=== PATIENT | female | born 1930 | race Caucasian/White ===

== ENCOUNTER → 2016-07-13 | Outpatient (CLI) | payer BC ==
[~2016-07-13] MED LIST: ALPR-411 PO; DILT-117 PO; DORZ1SOL6 OP; FERR1TAB13 PO; LATA0.5S OP; LEVO88TA PO; PANT40TA PO; POLY335019 PO; SENN1TAB65 PO; SPIR50TA PO
[2016-07-16 00:42] LABS: O&P GIARDIA AG NOT DETECTED (NOT DETECTED)
== END | disposition home or self-care (01) ==
LOC: C.LABSPEC 11:56
PROVIDERS: ATTEND Internal Medicine
DX: D72.1 Eosinophilia (principal)

== ENCOUNTER → 2016-07-15 | Outpatient (CLI) | payer BC ==
--- NOTE | 2016-07-15 08:40 | DIAGNOSTIC IMAGING REPORT ---
ABDOMINAL ULTRASOUND, RIGHT UPPER QUADRANT HISTORY: D72.1 Peripheral eosinophilia. COMPARISON: Abdominal ultrasound 06/15/2011. FINDINGS: Pancreas: The pancreas demonstrates a normal echotexture. Liver: The liver is echogenic consistent with fatty change. There is a 4.7 x 4.1 x 3.6 cm lesion within the right hepatic lobe. This demonstrates a targetoid appearance. This appears to be new from the prior study. Gallbladder: There are few stones within the gallbladder with the largest measuring 2.4 cm. Borderline gallbladder wall thickening. No pericholecystic fluid. CBD: 7 mm. This is within the range of normal limits given the patient's age. Right kidney: No hydronephrosis. A few subcentimeter cysts. IMPRESSION: 1. Interval development of a 4.7 cm targetoid lesion within the right hepatic lobe. Recommend dedicated liver MRI or CT for further characterization. 2. Cholelithiasis. There is borderline gallbladder wall thickening. No pericholecystic fluid. Electronically signed by: Silas Mendez M.D. 07/15/2016 8:38 AM
== END | disposition home or self-care (01) ==
LOC: C.ULTR 07:56
PROVIDERS: ATTEND Internal Medicine
DX: D72.1 Eosinophilia (principal); K76.9 Liver disease, unspecified; K80.20 Calculus of gallbladder without cholecystitis without obstruction

== ENCOUNTER → 2016-08-12 | Outpatient (CLI) | payer BC ==
--- NOTE | 2016-08-12 16:55 | DIAGNOSTIC IMAGING REPORT ---
CHEST 2 VIEWS ROUTINE CLINICAL HISTORY: D72.1 Peripheral eosinophilia COMPARISON STUDY: No previous studies for comparison. FINDINGS: There is a thoracic scoliosis. The heart is at the upper limits of normal in size. There is no failure. There is no focal pulmonary consolidation. There are no pleural effusions.[ IMPRESSION: No active disease in the chest. Electronically signed by: Ian Ross M.D. 08/12/2016 4:54 PM Dictated Date/Time: 08/12/2016 4:51 PM
[2016-08-16 15:50] LABS: AFP TUMOR MARKER SERUM 55.3 NG/ML (<6.1)
== END | disposition home or self-care (01) ==
LOC: C.RAD1850 16:31
PROVIDERS: ATTEND Internal Medicine
DX: D72.1 Eosinophilia (principal); R16.0 Hepatomegaly, not elsewhere classified

== ENCOUNTER → 2016-08-18 | Outpatient (CLI) | payer BC ==
--- NOTE | 2016-08-18 10:36 | DIAGNOSTIC IMAGING REPORT ---
PET/CT CLINICAL HISTORY: Hepatic mass. COMPARISON STUDY: MRI of the liver dated 07/23/2016. Abdominal ultrasound dated 07/15/2016. TECHNIQUE: One hour following the IV administration of 14.76 mCi of F-18 FDG, PET/CT examination was performed from the orbital meatal line through the bony pelvis. Noncontrast CT is performed for the purposes of anatomic correlation and attenuation correction. Note that this does not reflect a diagnostic CT examination. Images were reviewed on a separate [employer] independent workstation. Fused images were obtained. Standard uptake values reported are maximum values within the region of interest expressed in gm/mL. FINDINGS: PET FINDINGS: Head and neck: There is expected physiologic activity within the visualized brain parenchyma at the skull base and the salivary glands. Low level pharyngeal activity is likely within physiologic limits. Thorax: Evaluation of the thorax demonstrates expected physiologic myocardial activity. No pathologically enlarged mediastinal lymph nodes are identified. There is a high right peritracheal lymph node seen on image #63. This was not demonstrably FDG patent avid but is too small for PET characterization. Abdomen and pelvis: There is expected activity within the liver, spleen, kidneys, renal collecting system, and bladder. Low-level bowel activity is likely within physical limits. There is a subtle 3.4 cm low-attenuation lesion identified in the medial right lobe of the liver. This is best seen on image #123. This is not well assessed by PET, and there may be slightly increased FDG activity along the superior margin of the lesion suggested on image #118. This demonstrates a maximum SUV of 3.3 which is only slightly greater than background hepatic parenchyma. Unenhanced CT images: Visualized brain parenchyma at the skull base demonstrates age-related atrophy. The bony orbits are intact and the orbital contents are normal as imaged noting bilateral ocular lens implants. The paranasal sinuses and mastoid air cells are clear. There is no cervical lymphadenopathy. Atherosclerotic calcification is noted in the carotid bulbs. The salivary and thyroid glands are normal as imaged. There is atherosclerotic calcification of the thoracic aorta which is normal in caliber. The pulmonary trunk is dilated measuring up to 3.6 cm. This suggests pulmonary artery hypertension. The heart is top normal in size and there is trace pericardial fluid. The lungs and pleural spaces are clear. No concerning pulmonary lesion is seen. The trachea and central airways are patent. There is no hilar or axillary lymphadenopathy. A small hiatal hernia is identified. Enhanced liver is normal in size and attenuation. See above under PET findings for discussion of a liver lesion. A large calcified gallstone is noted. The pancreas demonstrate moderate glandular atrophy. The adrenal glands and spleen are normal as imaged. The kidneys are atrophic and without hydronephrosis. There is advanced atherosclerotic calcification of the abdominal aorta which is normal in caliber. There is no bowel obstruction. A normal appendix is identified. There is moderate sigmoid diverticulosis without CT evidence of acute diverticulitis. A fat-containing supraumbilical hernia is noted. There is no intraperitoneal free air or abdominal ascites. There is a small fat-containing left inguinal hernia. There is no abdominal, pelvic, or inguinal lymphadenopathy. The bladder is decompressed and not well evaluated. The uterus is surgically absent. No adnexal lesion is seen. Pelvic floor prolapse is suspected. The skeletal structures are osteopenic. No lytic or blastic lesions are identified. 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 Degenerative change is observed throughout the spine. There is thoracic scoliosis. IMPRESSION: 1. There is a subtle lesion in the right lobe of the liver which measures at least 3.4 cm in length. The majority of the lesion is not demonstrably FDG avid, with only mildly increased FDG activity suggested involving the superior margin of the lesion that is only slightly greater than background hepatic activity. This lesion was much better characterized on 07/23/2016 MRI, and the MRI findings remain highly concerning for hepatocellular carcinoma. Top differential considerations would include a solitary hepatic metastasis or hepatic adenoma. Correlation with serum AFP levels is recommended. 2. There is no evidence of FDG avid metastatic disease in the abdomen or pelvis. 3. The lungs are clear. 4. Cholelithiasis. 5. Moderate sigmoid diverticulosis without CT evidence of acute epiglottis. 6. Additional changes as above. Electronically signed by: Bora Amaral M.D. 08/18/2016 10:35 AM Dictated Date/Time: 08/18/2016 10:18 AM
== END | disposition home or self-care (01) ==
LOC: C.PET 07:45
PROVIDERS: ATTEND Internal Medicine
DX: C80.1 Malignant (primary) neoplasm, unspecified (principal); K76.9 Liver disease, unspecified; K80.20 Calculus of gallbladder without cholecystitis without obstruction; K57.30 Diverticulosis of large intestine without perforation or abscess without bleeding

== ENCOUNTER 2016-08-27 22:03 | Inpatient (IN) | payer BC, OTHER ==
[~2016-08-27] VITALS: Ht 160 cm; Wt 70.2 kg
[2016-08-27] MEDS ORDERED: PANTOprazole INJ 80 MG in DEXTROSE 5% 100ML 100 ML IV STA (22:20)
[2016-08-27] MEDS ORDERED: ONDANSETRON INJ 2 MG/ML 2 ML VIAL IV STA ×2 (22:20→23:14)
[2016-08-27 22:45] LABS: BASO % 0.9 %; COMPLETE YES; EOS % 4.1 %; HEMATOCRIT 37.6 % (37-47); IG% 0.1 %; LYMPH % 22.2 %; LYMPH ABS # 2.54 K/uL (1.2-3.4); MEAN CELL VOLUME 96.2 fL (80-100); MEAN CORPUSCULAR HEMOGLOBIN 33.5 pg (25-34); MEAN CORPUSCULAR HGB CONC 34.8 g/dl (32-36); MONO % 5.4 %; NEUT % 67.3 %; PLATELET COUNT 288 K/uL (130-400); RED BLOOD COUNT 3.91 M/uL (4.2-5.4); WHITE BLOOD COUNT 11.45 K/uL (4.8-10.8)
[2016-08-27 22:55] LABS: INR 1.2 (0.9-1.1); PROTHROMBIN TIME (PATIENT) 12.6 SECONDS (9.0-12.0)
[2016-08-27] MEDS ORDERED: LEVO88TA PO (23:01)
[2016-08-27] MEDS ORDERED: SPIR50TA PO (23:01)
[2016-08-27] MEDS ORDERED: ALPR-411 PO (23:01)
[2016-08-27] MEDS ORDERED: DORZ1SOL6 OP (23:01)
[2016-08-27] MEDS ORDERED: DILT-117 PO (23:01)
[2016-08-27] MEDS ORDERED: LATA0.5S OP (23:01)
[2016-08-27 23:04] LABS: ALT/SGPT 36 U/L (12-78); AST/SGOT 28 U/L (15-37); BLOOD UREA NITROGEN 43 mg/dl (7-18); BUN/CREATININE RATIO 38.7 (10-20); CALCIUM 9.1 mg/dl (8.5-10.1); CARBON DIOXIDE 24 mmol/L (21-32); CHLORIDE 105 mmol/L (98-107); GLUCOSE 131 mg/dl (70-99); POTASSIUM 3.6 mmol/L (3.5-5.1); SODIUM 143 mmol/L (136-145)
[2016-08-27 23:09] LABS: ALKALINE PHOSPHATASE 55 U/L (45-117)
[2016-08-27] MEDS ORDERED: OCTREOTIDE IV BOLUS & DRIP IV STA ×2 (23:28→23:47)
[2016-08-27 23:42] LABS: URINE APPEARANCE CLEAR (CLEAR); URINE BILIRUBIN NEG (NEG); URINE COLOR YELLOW; URINE EPITHELIAL CELL AUTO >30 /lpf (0-5); URINE NITRITE NEG (NEG); URINE SPECIFIC GRAVITY 1.019 (1.000-1.030); UROBILINOGEN NEG (NEG); ZZUR CULT IF INDIC CLEAN CATCH NO
[2016-08-28] MEDS ORDERED: MoRPHine SULFATE 2 MG/ML CARP IV PRN
[2016-08-28] MEDS ORDERED: ONDANSETRON INJ 2 MG/ML 2 ML VIAL IV PRN
[2016-08-28] MEDS ORDERED: OCTREOTIDE ACETATE INJ 100 MCG in SYRINGE 9 ML IV STA (00:03)
[2016-08-28 00:04] LABS: MANUAL MICROSCOPIC REQUIRED? NO; REVIEW REQ? NO
[2016-08-28] MEDS: PANTOprazole INJ 40 MG in DEXTROSE 5% 100ML IV SCH ×6 (00:31→23:39)
--- NOTE | 2016-08-28 00:36 | History and Physical ---
History & Physical Date & Time of Service: Aug 28, 2016 at 00:12 Chief Complaint: Vomit--Blood Clots Primary Care Physician: Sanjeev Wilkerson M.D. History of Present Illness Source: patient, family 86 y/o F w/Hx HTN, hypothyroidism and recently discovered solitary, vascular liver mass. The pt became nauseous this evening and then had an episode of hematemesis vomiting several blood clots and a mixture of dark and bright blood. He daughter was visiting her this evening and snapped confirmatory photos of the vomitus to present to the ER. The pt has not had an additional episode while in the ER. She denies abdominal pain or diarrhea and denies nausea at the time of admission. She has no history of PUD, hematemesis or varices. Her mass is currently under evaluation and she has not had a biopsy as of yet. She states her AFP levels have been WNL. The pt may have a glass of wine daily but does not drink in excess, she denies chronic NSAID use. Past Medical/Surgical History Medical Problems: (1) Cholelithiasis Status: Resolved 2) HTN 3) Hypothyroidism 4) Vascular liver mass in R hepatic lobe under evaluation Family History Father had colon CA Social History Smoking Status: Former Smoker Multi-Drug Resistant Organisms History of MDRO: No Allergies Coded Allergies: Iodinated Diagnostic Agents (Unverified Allergy, Unknown, SWELLING, ) CONTRAST Home Medications Scheduled Diltiazem Hcl Ext Rel (Tiazac), 300 MG PO DAILY Dorzolamide Hcl-Timolol Maleat (Cosopt Oph), 1 DROPS OP BID Hctz/Spironolactone 25MG/25MG (Aldactazide 25MG/25MG), 1 TAB PO BID Latanoprost (Xalatan 0.005% Oph Mayuri), 1 DROPS OP HS Levothyroxine Sodium (Synthroid), 88 MCG PO QAM Scheduled PRN Alprazolam (Xanax), 0.25 MG PO HS PRN for Insomnia Review of Systems Constitutional: No chills, No fever, No sweats Eyes: No worsening of vision ENT: No hearing loss, No nasal symptoms, No unusual epistaxis Respiratory: No cough, No sputum, No wheezing Cardiovascular: No PND, No chest pain, No orthopnea Abdomen: + GI bleeding, + nausea, + vomiting, No pain Musculoskeletal: No joint pain, No muscle pain Genitourinary - Female: No dysuria, No urinary frequency, No urinary urgency Neurologic: No memory loss, No paralysis Psychiatric: No depression symptoms Endocrine: No fatigue Hematologic / Lymphatic: + abnormal bleeding/bruising Integumentary: No rash Allergic / Immunologic: No environmental allergies Physical Exam Vital Signs Date Time Temp Pulse Resp B/P Pulse Ox O2 Delivery O2 Flow Rate FiO2 08/27/16 23:01 92 08/27/16 22:10 36.8 96 20 162/73 96 Room Air General Appearance: WD/WN, no apparent distress, + pertinent finding (Plesent elderly female resting comfortably and enjoying a book) Head: normocephalic, atraumatic Eyes: normal inspection ENT: normal ENT inspection, hearing grossly normal, TMs normal, pharynx normal Neck: supple, no JVD Respiratory/Chest: chest non-tender, lungs clear, no accessory muscle use Cardiovascular: regular rate, rhythm, no edema, no gallop, normal peripheral pulses Abdomen/GI: normal bowel sounds, non tender, soft, + pertinent finding ( Hematemesis confirmed with a photo) Back: normal inspection, no CVA tenderness, no muscle spasm, normal range of motion Extremities/Musculoskelatal: normal inspection, no calf tenderness, normal capillary refill, no pedal edema, normal range of motion Neurologic/Psych: seismograph recorder II-XII nml as tested, no motor/sensory deficits, alert, normal mood/affect, normal reflexes, oriented x 3 Skin: normal color, warm/dry, no rash Diagnostics Laboratory Results Results Past 24 Hours Test 08/27/16 22:30 08/27/16 23:29 Range/Units White Blood Count 11.45 4.8-10.8 K/uL Red Blood Count 3.91 4.2-5.4 M/uL Hemoglobin 13.1 12.0-16.0 g/dL Hematocrit 37.6 37-47 % Mean Corpuscular Volume 96.2 80-100 fL Mean Corpuscular Hemoglobin 33.5 25-34 pg Mean Corpuscular Hemoglobin Concent 34.8 32-36 g/dl Platelet Count 288 130-400 K/uL Mean Platelet Volume 10.0 7.4-10.4 fL Neutrophils (%) (Auto) 67.3 % Lymphocytes (%) (Auto) 22.2 % Monocytes (%) (Auto) 5.4 % Eosinophils (%) (Auto) 4.1 % Basophils (%) (Auto) 0.9 % Neutrophils # (Auto) 7.71 1.4-6.5 K/uL Lymphocytes # (Auto) 2.54 1.2-3.4 K/uL Monocytes # (Auto) 0.62 0.11-0.59 K/uL Eosinophils # (Auto) 0.47 0-0.5 K/uL Basophils # (Auto) 0.10 0-0.2 K/uL RDW Standard Deviation 48.1 36.4-46.3 fL RDW Coefficient of Variation 13.7 11.5-14.5 % Immature Granulocyte % (Auto) 0.1 % Immature Granulocyte # (Auto) 0.01 0.00-0.02 K/uL Prothrombin Time 12.6 9.0-12.0 SECONDS Prothromb Time International Ratio 1.2 0.9-1.1 Activated Partial Thromboplast Time 24.8 21.0-31.0 SECONDS Partial Thromboplastin Ratio 1.0 Sodium Level 143 136-145 mmol/L Potassium Level 3.6 3.5-5.1 mmol/L Chloride Level 105 98-107 mmol/L Carbon Dioxide Level 24 21-32 mmol/L Anion Gap 14.0 3-11 mmol/L Blood Urea Nitrogen 43 7-18 mg/dl Creatinine 1.10 0.60-1.20 mg/dl Est Creatinine Clear Calc Drug Dose 36.2 ml/min Estimated GFR () 53.4 Estimated GFR (Non- 46.1 BUN/Creatinine Ratio 38.7 10-20 Random Glucose 131 70-99 mg/dl Calcium Level 9.1 8.5-10.1 mg/dl Total Bilirubin 0.8 0.2-1 mg/dl Direct Bilirubin 0.2 0-0.2 mg/dl Aspartate Amino Transf (AST/SGOT) 28 15-37 U/L Alanine Aminotransferase (ALT/SGPT) 36 12-78 U/L Alkaline Phosphatase 55 45-117 U/L Troponin I < 0.015 0-0.045 ng/ml Total Protein 7.5 6.4-8.2 gm/dl Albumin 3.8 3.4-5.0 gm/dl Lipase 176 73-393 U/L Urine Color YELLOW Urine Appearance CLEAR CLEAR Urine pH 5.0 4.5-7.5 Urine Specific [place] 1.019 1.000-1.030 Urine Protein NEG NEG Urine Glucose (UA) NEG NEG Urine Ketones 1+ NEG Urine Occult Blood NEG NEG Urine Nitrite NEG NEG Urine Bilirubin NEG NEG Urine Urobilinogen NEG NEG Urine Leukocyte Esterase SMALL NEG Urine WBC (Auto) 1-5 0-5 /hpf Urine RBC (Auto) 0-4 0-4 /hpf Urine Hyaline Casts (Auto) 0 0-5 /lpf Urine Epithelial Cells (Auto) >30 0-5 /lpf Urine Bacteria (Auto) NEG NEG Impression Assessment and Plan 86 y/o F w/Hx HTN, hypothyroidism and recently discovered solitary, vascular liver mass. The pt became nauseous this evening and then had an episode of hematemesis vomiting several blood clots and a mixture of dark and bright blood. He daughter was visiting her this evening and snapped confirmatory photos of the vomitus to present to the ER. The pt has not had an additional episode while in the ER. She denies abdominal pain or diarrhea and denies nausea at the time of admission. She has no history of PUD, hematemesis or varices. Her mass is currently under evaluation and she has not had a biopsy as of yet. She states her AFP levels have been WNL. 1) Hematemesis: Pt placed on a Pantoprazole drip in addition to Octreotide pending evaluation by GI. She will be monitored on telemetry, we will provide IVF and antiemetics as needed and keep pt NPO for likely EGD. Her liver mass appears to be a solitary lesion and there is no evidence of cirrhosis so that this is less likely to be the result of varices however we would not be able to rule this out at present. Hb will be checked Q4H. A blood consent was placed in the chart on admission. 2) HTN - We have held her diuretics and Diltiazem as she is at risk of decompensation. Considering the above we may administer a low dose of IV B may if it becomes necessary to lower her BP. 3) Hypothyroidism - IV Synthroid at 44mcg daily 4) Liver mass - pending further outpt evaluation Full code - SCDs Total time for this admit including review of records, labs, meds - discussion with ER attending and pt/daughter 35 min Resuscitation Status FULL RESUSCITATION VTE Prophylaxis VTE Risk Assessment Done? Y/N: Yes Risk Level: Moderate Given or contraindicated: SCD's
[2016-08-28] MEDS ORDERED: LORAZEPAM 2 MG/ML 1 ML VIAL IV STA (00:48)
[2016-08-28] MEDS: OCTREOTIDE ACETATE INJ 500 MCG in NSS 100ML IV SCH ×2 (02:40→11:22)
--- NOTE | 2016-08-28 02:43 | EMERGENCY ROOM VISIT NOTE ---
History Report prepared by Tato: Ayala Driscoll Under the Supervision of: Dr. Andi Ruano M.D. 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 The patient states that she is being evaluated for potential liver cancer and has had an MRI and PET scan, she reports they have concluded that it is about the size of a dime and is not coming from anywhere else in her body. She reports that today she felt nauseous all day and had one episode of vomiting with multiple waves of vomit that had blood and dark clots in it. The patient's daughter took a picture of the vomit. The patient notes that this has never happened to her before. She denies any black or bloody stools, cirrhosis of the liver, abdominal pain, history of ulcers, or continued use of NSAIDS. She reports that she is not on blood thinners and does not have varices that she knows of. The patient reports that she is not a heavy drinker but has one glass of wine every night before dinner. She notes that she has never had an endoscope and has an incisional hernia from a surgery 30 years ago. She reports that she takes Aspirin occasionally but not regularly. 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 Review of Systems See HPI for pertinent positives & negatives. A total of 10 systems reviewed and were otherwise negative. Past Medical & Surgical Medical Problems: (1) Cholelithiasis (2) Hematemesis (3) Hepatocellular carcinoma Family History No pertinent family history stated. Social History Smoking Status: Former Smoker Alcohol Use: other (1 drink a day) Housing Status: skilled nursing Occupation Status: retired Current/Historical Medications Scheduled Diltiazem Hcl Ext Rel (Tiazac), 300 MG PO DAILY Dorzolamide Hcl-Timolol Maleat (Cosopt Oph), 1 DROPS OP BID Hctz/Spironolactone 25MG/25MG (Aldactazide 25MG/25MG), 1 TAB PO BID Latanoprost (Xalatan 0.005% Oph Mayuri), 1 DROPS OP HS Levothyroxine Sodium (Synthroid), 88 MCG PO QAM Scheduled PRN Alprazolam (Xanax), 0.25 MG PO HS PRN for Insomnia Allergies Coded Allergies: Iodinated Diagnostic Agents (Unverified Allergy, Unknown, SWELLING, ) CONTRAST Physical Exam Vital Signs Date Time Temp Pulse Resp B/P Pulse Ox O2 Delivery O2 Flow Rate FiO2 08/28/16 02:00 84 20 139/71 94 Room Air 08/28/16 00:36 95 19 143/73 98 Room Air 08/27/16 23:01 92 08/27/16 22:10 36.8 96 20 162/73 96 Room Air Physical Exam Constitutional: Vital signs reviewed. Eyes: Pupils are equal round reactive to light. Conjunctiva are noninjected. ENT: Pharynx is clear without erythema or exudate. Mucous membranes are moist. Neck supple without meningeal signs. Respiratory: Clear to auscultation bilaterally. Breath sounds are equal bilaterally. Cardiovascular: Tachycardic rate of 103 and rhythm. No rubs or gallops. GI: Soft, nondistended and nontender. Bowel sounds are present. Musculoskeletal: No peripheral edema. No lower extremity tenderness. Integumentary: No cyanosis. Neurological: The patient is awake and alert. No focal deficits. Psychiatric: Normal affect. Rectal: Guaiac negative. Brown stool. Medical Decision & Procedures ER Provider Diagnostic Interpretation: X-ray results as stated below per interpretation by me: Chest/Abdomen X-ray: No acute cardiopulmonary process, no free air or obstruction. Laboratory Results 08/27/16 22:30 Red Blood Count 3.91, Mean Corpuscular Volume 96.2, Mean Corpuscular Hemoglobin 33.5, Mean Corpuscular Hemoglobin Concent 34.8, Mean Platelet Volume 10.0, Neutrophils (%) (Auto) 67.3, Lymphocytes (%) (Auto) 22.2, Monocytes (%) (Auto) 5.4, Eosinophils (%) (Auto) 4.1, Basophils (%) (Auto) 0.9, Neutrophils # (Auto) 7.71, Lymphocytes # (Auto) 2.54, Monocytes # (Auto) 0.62, Eosinophils # (Auto) 0.47, Basophils # (Auto) 0.10 08/27/16 22:30 Test 08/27/16 22:30 08/27/16 23:29 White Blood Count 11.45 K/uL (4.8-10.8) Red Blood Count 3.91 M/uL (4.2-5.4) Hemoglobin 13.1 g/dL (12.0-16.0) Hematocrit 37.6 % (37-47) Mean Corpuscular Volume 96.2 fL (80-100) Mean Corpuscular Hemoglobin 33.5 pg (25-34) Mean Corpuscular Hemoglobin Concent 34.8 g/dl (32-36) Platelet Count 288 K/uL (130-400) Mean Platelet Volume 10.0 fL (7.4-10.4) Neutrophils (%) (Auto) 67.3 % Lymphocytes (%) (Auto) 22.2 % Monocytes (%) (Auto) 5.4 % Eosinophils (%) (Auto) 4.1 % Basophils (%) (Auto) 0.9 % Neutrophils # (Auto) 7.71 K/uL (1.4-6.5) Lymphocytes # (Auto) 2.54 K/uL (1.2-3.4) Monocytes # (Auto) 0.62 K/uL (0.11-0.59) Eosinophils # (Auto) 0.47 K/uL (0-0.5) Basophils # (Auto) 0.10 K/uL (0-0.2) RDW Standard Deviation 48.1 fL (36.4-46.3) RDW Coefficient of Variation 13.7 % (11.5-14.5) Immature Granulocyte % (Auto) 0.1 % Immature Granulocyte # (Auto) 0.01 K/uL (0.00-0.02) Prothrombin Time 12.6 SECONDS (9.0-12.0) Prothromb Time International Ratio 1.2 (0.9-1.1) Activated Partial Thromboplast Time 24.8 SECONDS (21.0-31.0) Partial Thromboplastin Ratio 1.0 Anion Gap 14.0 mmol/L (3-11) Est Creatinine Clear Calc Drug Dose 36.2 ml/min Estimated GFR () 53.4 Estimated GFR (Non- 46.1 BUN/Creatinine Ratio 38.7 (10-20) Calcium Level 9.1 mg/dl (8.5-10.1) Total Bilirubin 0.8 mg/dl (0.2-1) Direct Bilirubin 0.2 mg/dl (0-0.2) Aspartate Amino Transf (AST/SGOT) 28 U/L (15-37) Alanine Aminotransferase (ALT/SGPT) 36 U/L (12-78) Alkaline Phosphatase 55 U/L (45-117) Troponin I < 0.015 ng/ml (0-0.045) Total Protein 7.5 gm/dl (6.4-8.2) Albumin 3.8 gm/dl (3.4-5.0) Lipase 176 U/L (73-393) Urine Color YELLOW Urine Appearance CLEAR (CLEAR) Urine pH 5.0 (4.5-7.5) Urine Specific [place] 1.019 (1.000-1.030) Urine Protein NEG (NEG) Urine Glucose (UA) NEG (NEG) Urine Ketones 1+ (NEG) Urine Occult Blood NEG (NEG) Urine Nitrite NEG (NEG) Urine Bilirubin NEG (NEG) Urine Urobilinogen NEG (NEG) Urine Leukocyte Esterase SMALL (NEG) Urine WBC (Auto) 1-5 /hpf (0-5) Urine RBC (Auto) 0-4 /hpf (0-4) Urine Hyaline Casts (Auto) 0 /lpf (0-5) Urine Epithelial Cells (Auto) >30 /lpf (0-5) Urine Bacteria (Auto) NEG (NEG) Laboratory results as reviewed by me. Medications Administered Medications (Trade) Dose Ordered Sig/Seth Route Start Time Stop Time Status Last Admin Dose Admin Ondansetron HCl 4 mg 4 mg NOW STAT IV 08/27/16 22:20 08/27/16 22:22 DC 08/27/16 22:46 4 MG Pantoprazole Sodium/Dextrose (Protonix Inj/D5 100ml) 120 ml @ 400 mls/hr NOW STAT IV 08/27/16 22:20 08/27/16 22:37 DC 08/27/16 22:46 400 MLS/HR Ondansetron HCl 4 mg 4 mg NOW STAT IV 08/27/16 23:14 08/27/16 23:15 DC 08/27/16 23:25 4 MG Octreotide Acetate 100 mcg/ Syringe 10 ml @ 3 mls/min ONE STAT IV 08/28/16 00:03 08/28/16 00:06 DC 08/28/16 01:59 3 MLS/MIN Pantoprazole Sodium/Dextrose (Protonix Inj/D5 100ml) 100 ml @ 20 mls/hr Q5H IV 08/28/16 00:15 09/27/16 00:14 08/28/16 00:31 20 MLS/HR Lorazepam (Ativan Inj) 0.25 mg NOW STAT IV 08/28/16 00:48 08/28/16 00:54 DC 08/28/16 02:09 0.25 MG ED Course 2210: The patient was evaluated in room A2. A complete history and physical exam was performed. 2220: Pantoprazole Sodium 80mg/Dextrose 120ml @ 400mls/hr IV, Zofran Inj 4mg IV. 2314: Zofran Inj 4mg IV. 2317: I reevaluated the patient. She is still nauseated and she is hypertensive. She is not tachycardic. 2320: I spoke to Dr. Larose about the patient's case. He wants me to talk to GI. 2328: Octreotide Acetate 1 ea IV. 2328: I spoke to Dr. Salguero. She suggested no emergent scope and to start the Octreotide drip. 2331: I spoke with Dr. Larose of [facility]. We discussed the patient and her results. The patient will be further evaluated by Dr. Larose. Medical Decision This is an 86-year-old female presents with hematemesis. Differential diagnosis includes GI bleed, peptic ulcer disease, gastritis, esophageal varices , anemia. I did perform a limited focused review of portions of the patient's old chart on the electronic medical record. The patient has had had an MRI of the liver in July which was concerning for hepatocellular carcinoma. I did evaluate the patient as noted above. I did review the pictures of the vomitus that her daughter brought in. She did have bright red blood as well as clots in the vomit. Her stool is brown and guaiac negative. IV access was established. The patient was placed on a continuous cardiac technician. I did order and personally review the patient's abdominal and chest x-ray as described above. There is no evidence of free air or obstruction. I did order and review the patient's blood work as noted in the electronic medical record. She is not anemic. I did reassess the patient. She remains hemodynamically stable. Her tachycardia has improved. She was given Protonix IV. An octreotide drip was started. A type and screen was obtained. I did discuss the case with gastroenterology he did not feel emergent endoscopy was indicated. I did discuss case with the hospitalist who admitted the patient. Consults Time Called: 2314 Consulting Physician: Dr. Larose - [facility] Returned Call: [address] Larose about the patient's case. He wants me to talk to GI. Additional Consults: Time Called: 2321 Consulted Physician: Dr. Salguero Returned Call: 2325 Additional Comments: I spoke to Dr. Salguero. She suggested no emergent scope and to start the Octreotide drip. Time Called: 232 Consulted Physician: Dr. Salguero Returned Call: 2331 Additional Comments: I spoke with Dr. Larose of [facility]. We discussed the patient and her results. The patient will be further evaluated by Dr. Larose. Impression Primary Impression: Upper GI bleed Scribe Attestation The scribe's documentation has been prepared under my direct and personally reviewed by me in its entirety. I confirm that the note above accurately reflects all work, treatment, procedures, and medical decision making performed by me. Departure Information Dispostion Being Evaluated By Hospitalist Referrals Sanjeev Wilkerson M.D. (PCP) Patient Instructions My [facility]
[2016-08-28 03:01] VITALS: BP 128/74; PULSE 90; TEMP 36.8; O2SAT 94; Ht 160 cm; Wt 70.2 kg
[2016-08-28] MEDS: D5NSS + 20MEQ KCL 1,000 ML IV SCH ×2 (03:24→12:54)
[2016-08-28 05:55] VITALS: BP 112/66; PULSE 77; TEMP 37; O2SAT 95
--- NOTE | 2016-08-28 06:34 | DIAGNOSTIC IMAGING REPORT ---
PA CHEST RADIOGRAPH AND UPRIGHT AND SUPINE AP RADIOGRAPHS OF THE ABDOMEN CLINICAL HISTORY: GI bleed. COMPARISON STUDY: PET/CT August 18, 2016 and chest radiograph August 12, 2016. FINDINGS: Lung volumes are normal. Cardiomediastinal silhouette is stable. There is no evidence of pulmonary edema. Mild left basilar opacity suggestive atelectasis. No consolidation is identified. There is no free air. Bowel gas pattern is normal. A gallstone is noted within the gallbladder. There is a moderate amount of stool within the colon and rectum. IMPRESSION: 1. No free air or evidence of bowel obstruction. 2. Moderate amount stool within the colon and rectum. 3. Cholelithiasis. 4. No acute cardiopulmonary findings. Electronically signed by: Florin Rai M.D. 08/28/2016 6:33 AM Dictated Date/Time: 08/28/2016 6:30 AM
[2016-08-28 07:53] VITALS: BP 112/66; PULSE 77; TEMP 37; O2SAT 95
--- NOTE | 2016-08-28 08:09 | Gastrointestinal Consultation ---
Gastrointestinal Consultation Date of Consultation: Aug 28, 2016 Attending Physician: Dr. Bobo Consulting Physician: Dr. Salguero Reason for Consultation: hematemesis History of Present Illness Patient is a 86 year old female wtih HTN, hypothyroidism, and recent incidental finding of a lesion in her liver (discovered on imaging done for epigastric and RUQ pain). Work-up of the liver lesion is in process. She is not cirrhotic. AFP is normal. Has no history of liver disease. Imaging is inconclusive - HCC vs hepatic adenoma. She presented to the ER last night after several episodes of emesis with some bright red blood and clots. She tells me that she had some nausea all day yesterday. She was able to eat lunch but later told her daughter she just didn't feel well and was going to go lay down. She got a wave of nausea and some upper abdominal pressure while in bed and sat up and vomited several times. When she turned on the lights she noted that the emesis was bloody with some clots. EMS was called and she was brought to the ER. Her hgb is 13.1 and INR is 1.2, She is not on ASA, PLavix or coumadin but does admit that in the last week she had been taking Aleve. No prior history of GI bleed, ulcer disease, etc. In the ER she was started on PPI gtt as well as octreotide. She has not had any further vomiting and has not had any BM since yesterday. Past Medical/Surgical History Medical Problems: (1) Upper GI bleed Status: Acute Past Medical History: HTN, hypothyroidism, liver lesion Past Surgical History: non-contributory Family History no family history of liver disease, + family history of colon cancer Social History Smoking Status: Never Smoker Alcohol Use: occasionally, other (1 drink a day) Drug Use: none Marital Status: Housing Status: [facility]iary Occupation Status: retired Allergies Coded Allergies: Iodinated Diagnostic Agents (Unverified Allergy, Unknown, SWELLING, ) CONTRAST Current Medications Home Meds and Scripts Medications Dose Route/Sig Max Daily Dose Days Date Category Xalatan 0.005% Oph Mayuri (Latanoprost) 0.005 % Mayuri 1 Drops OP HS 08/27/16 Reported Cosopt Oph (Dorzolamide Hcl-Timolol Maleat) 1 Mayuri Mayuri 1 Drops OP BID 08/27/16 Reported Xanax (Alprazolam) 0.5 Mg Tab 0.25 Mg PO HS PRN 08/27/16 Reported Aldactazide 25MG/25MG (HCTZ/Spironolactone) 1 Tab Tab 1 Tab PO BID 08/27/16 Reported Tiazac (Diltiazem HCl) 300 Mg Capcr 300 Mg PO DAILY 08/27/16 Reported Synthroid (Levothyroxine Sodium) 88 Mcg Tab 88 Mcg PO QAM 08/27/16 Reported Review of Systems 12 systems reviewed and negative except as noted Physical Exam Date Time Temp Pulse Resp B/P Pulse Ox O2 Delivery O2 Flow Rate FiO2 08/28/16 04:00 Room Air 08/28/16 03:01 36.8 90 20 128/74 94 Room Air 08/28/16 02:00 84 20 139/71 94 Room Air 08/28/16 00:36 95 19 143/73 98 Room Air 08/27/16 23:01 92 08/27/16 22:10 36.8 96 20 162/73 96 Room Air General Appearance: WD/WN, no apparent distress Eyes: normal inspection, PERRL ENT: normal ENT inspection, hearing grossly normal, pharynx normal Neck: supple, no adenopathy, no JVD Respiratory/Chest: chest non-tender, lungs clear, normal breath sounds, no respiratory distress, no accessory muscle use Cardiovascular: regular rate, rhythm, no murmur Abdomen: normal bowel sounds, non tender, soft Extremities: normal range of motion, non-tender, normal inspection, no pedal edema, no calf tenderness 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 nml as tested, no motor/sensory deficits, alert, normal mood/affect, oriented x 3 Skin: normal color, no jaundice, warm/dry, no rash Laboratory Results Last 24 Hours Test 08/27/16 22:30 08/27/16 23:29 08/28/16 07:30 White Blood Count 11.45 K/uL Red Blood Count 3.91 M/uL Hemoglobin 13.1 g/dL Hematocrit 37.6 % Mean Corpuscular Volume 96.2 fL Mean Corpuscular Hemoglobin 33.5 pg Mean Corpuscular Hemoglobin Concent 34.8 g/dl Platelet Count 288 K/uL Mean Platelet Volume 10.0 fL Neutrophils (%) (Auto) 67.3 % Lymphocytes (%) (Auto) 22.2 % Monocytes (%) (Auto) 5.4 % Eosinophils (%) (Auto) 4.1 % Basophils (%) (Auto) 0.9 % Neutrophils # (Auto) 7.71 K/uL Lymphocytes # (Auto) 2.54 K/uL Monocytes # (Auto) 0.62 K/uL Eosinophils # (Auto) 0.47 K/uL Basophils # (Auto) 0.10 K/uL RDW Standard Deviation 48.1 fL RDW Coefficient of Variation 13.7 % Immature Granulocyte % (Auto) 0.1 % Immature Granulocyte # (Auto) 0.01 K/uL Prothrombin Time 12.6 SECONDS Prothromb Time International Ratio 1.2 Activated Partial Thromboplast Time 24.8 SECONDS Partial Thromboplastin Ratio 1.0 Sodium Level 143 mmol/L Potassium Level 3.6 mmol/L Chloride Level 105 mmol/L Carbon Dioxide Level 24 mmol/L Anion Gap 14.0 mmol/L Blood Urea Nitrogen 43 mg/dl Creatinine 1.10 mg/dl Est Creatinine Clear Calc Drug Dose 36.2 ml/min Estimated GFR () 53.4 Estimated GFR (Non- 46.1 BUN/Creatinine Ratio 38.7 Random Glucose 131 mg/dl Calcium Level 9.1 mg/dl Total Bilirubin 0.8 mg/dl Direct Bilirubin 0.2 mg/dl Aspartate Amino Transf (AST/SGOT) 28 U/L Alanine Aminotransferase (ALT/SGPT) 36 U/L Alkaline Phosphatase 55 U/L Troponin I < 0.015 ng/ml Total Protein 7.5 gm/dl Albumin 3.8 gm/dl Lipase 176 U/L Urine Color YELLOW Urine Appearance CLEAR Urine pH 5.0 Urine Specific [place] 1.019 Urine Protein NEG Urine Glucose (UA) NEG Urine Ketones 1+ Urine Occult Blood NEG Urine Nitrite NEG Urine Bilirubin NEG Urine Urobilinogen NEG Urine Leukocyte Esterase SMALL Urine WBC (Auto) 1-5 /hpf Urine RBC (Auto) 0-4 /hpf Urine Hyaline Casts (Auto) 0 /lpf Urine Epithelial Cells (Auto) >30 /lpf Urine Bacteria (Auto) NEG Impression Patient is a 86 year old female admitted with hematemesis in the setting of not feeling well with nausea for several hours before. She has been on recent NSAIDs so PUD is a concern. The liver work-up is less concerning for a portal hypertensive bleed. Plan Continue with PPI and octreotide gtt for now Repeat H/H this AM please NPO Will arrange EGD today.
[2016-08-28 08:19] LABS: BUN/CREATININE RATIO 45.8 (10-20); CALCIUM 8.2 mg/dl (8.5-10.1); CREATININE 0.97 mg/dl (0.60-1.20); MAGNESIUM 1.3 mg/dl (1.8-2.4); POTASSIUM 3.5 mmol/L (3.5-5.1)
[2016-08-28] MEDS: DORZOLAMIDE/TIMOLOL 22.3/6.8MG/ML 10 ML BTL OP SCH ×2 (08:39→20:43)
[2016-08-28] MEDS ORDERED: LEVOTHYROXINE SODIUM 20 MCG/1 ML IM SCH (09:00)
[2016-08-28] MEDS ORDERED: LEVOTHYROXINE SODIUM INJ 44 MCG in SYRINGE 0 ML IV SCH (09:00)
[2016-08-28] MEDS ORDERED: ATROPINE SULFATE 0.1 MG/ML 5ML SYR IV PRN (09:15)
[2016-08-28] MEDS ORDERED: EpHEDrine SULFATE INJ 50 MG/ML AMP IV PRN (09:15)
[2016-08-28] MEDS ORDERED: MIDAZOLAM HCL 1 MG/ML 2ML VIAL ONE (09:33)
[2016-08-28] MEDS ORDERED: PROPOFOL IV EMULSION 10 MG/ML 20 ML VIAL IV ONE (09:34)
[2016-08-28] MEDS ORDERED: LIDOCAINE HCL 2% 2 ML VIAL (20MG/ML) ONE (09:34)
[2016-08-28] MEDS ORDERED: ONDANSETRON INJ 2 MG/ML 2 ML VIAL ONE (09:34)
--- NOTE | 2016-08-28 10:20 | GI REPORT ---
Procedure Date: 08/28/2016 8:26 AM Procedure: Upper GI endoscopy Indications: Hematemesis Medicines: Propofol per Anesthesia Complications: No immediate complications. Estimated blood loss: Minimal. Estimated Blood Loss: Estimated blood loss was minimal. Procedure: Pre-Anesthesia Assessment: - Prior to the procedure, a History and Physical was performed, and patient medications, allergies and sensitivities were reviewed. The patient's tolerance of previous anesthesia was reviewed. - The risks and benefits of the procedure and the sedation options and risks were discussed with the patient. All questions were answered and informed consent was obtained. - Patient identification and proposed procedure were verified prior to the procedure by the physician and the nurse. The procedure was verified in the pre-procedure area in the procedure room. - Mental Status Examination: alert and oriented. Airway Examination: normal oropharyngeal airway and neck mobility. Respiratory Examination: clear to auscultation. CV Examination: normal. Abdominal Examination: bowel sounds present, abdomen soft and non-tender, no masses or organomegaly noted. - ASA Grade Assessment: II - A patient with mild systemic disease. After obtaining informed consent, the endoscope was passed under direct vision. Throughout the procedure, the patient's blood pressure, pulse, and oxygen saturations were monitored continuously. The Scope was introduced through the mouth, and advanced to the pylorus. The upper GI endoscopy was accomplished without difficulty. The patient tolerated the procedure well. Findings: The esophagus was normal. No varices, no esophagitis, no MW tear. Many non-bleeding cratered and superficial gastric ulcers with no stigmata of bleeding were found in the gastric antrum. Biopsies were taken with a cold forceps for Helicobacter pylori testing. Verification of patient identification for the specimen was done by the physician and nurse using the patient's name and date. Estimated blood loss was minimal. Impression: - Normal esophagus. No varices. - Multiple non-bleeding gastric ulcers. There is a large ulcer in the pyloric channel. Scope not advance beyond the ulcer. No visible vessels or clots. Stomach mucosa biopsied. Recommendation: - Await pathology results. - Continue the PPI gtt for 24 hours then transition to BID oral PPI. - No NSAIDs. - Advance diet as tolerated today. - Return patient to hospital go for ongoing care. Arianna Salguero D.O. Arianna Salguero DO 08/28/2016 10:19:53 AM This report has been signed electronically. Note Initiated On: 08/28/2016 8:26 AM I attest to the content of the Intraoperative Record and orders documented therein, exceptions below
--- NOTE | 2016-08-28 10:37 | Anesthesiology Progress Note ---
Anesthesia Post Op Note Date & Time Aug 28, 2016 at 10:37 Vital Signs Pain Intensity: 0.0 Vital Signs Past 12 Hours Date Time Temp Pulse Resp B/P Pulse Ox O2 Delivery O2 Flow Rate FiO2 08/28/16 10:30 60 19 108/55 96 Nasal Cannula 2 08/28/16 10:20 67 18 101/56 99 Nasal Cannula 2 08/28/16 10:12 37.1 61 16 105/48 99 Nasal Cannula 2 08/28/16 08:00 Room Air 08/28/16 07:53 37.0 77 18 112/66 95 Room Air 08/28/16 05:55 37.0 77 18 112/66 95 Room Air 08/28/16 04:00 Room Air 08/28/16 03:01 36.8 90 20 128/74 94 Room Air 08/28/16 02:00 84 20 139/71 94 Room Air 08/28/16 00:36 95 19 143/73 98 Room Air 08/27/16 23:01 92 Notes Mental Status: alert / awake / arousable, participated in evaluation Pt Amnestic to Procedure: Yes Nausea / Vomiting: adequately controlled Pain: adequately controlled Airway Patency, RR, SpO2: stable & adequate BP & HR: stable & adequate Hydration State: stable & adequate Anesthetic Complications: no major complications apparent
[2016-08-28 11:15] VITALS: BP 104/47; PULSE 68; TEMP 36.9; O2SAT 95
[2016-08-28] MEDS ORDERED: NURSING VERBAL MED ORDER ONE ×2 (13:15→23:00)
[2016-08-28] MEDS ORDERED: MAGNESIUM SULFATE 1GM / D5W 1 GM in PREMIXED IN D5W 100 ML IV ONE (13:30)
[2016-08-28 15:32] VITALS: BP 113/65; PULSE 74; TEMP 37.2; O2SAT 97
--- NOTE | 2016-08-28 18:49 | Progress Note ---
Subjective Date of Service: Aug 28, 2016. Subjective Pt evaluation today including: conversation w/ patient, conversation w/ family , physical exam, chart review, lab review, review of studies, review of inpatient medication list Problem List Medical Problems: (1) Upper GI bleed Status: Acute Review of Systems Constitutional: No chills, No fatigue, No fever, No problem reported, No see HPI, No sweats, No weakness, No weight loss Eyes: No diplopia, No discharge, No eye pain, No problem reported, No redness, No see HPI, No worsening of vision ENT: No dental problems, No hearing loss, No nasal symptoms, No problem reported, No see HPI, No sore throat, No tinnitus, No trouble swallowing, No unusual epistaxis Respiratory: No cough, No dyspnea at rest, No dyspnea on exertion, No hemoptysis, No problem reported, No see HPI, No shortness of breath, No sputum, No wheezing Cardiac: No PND, No chest pain, No claudication, No edema, No orthopnea, No palpitations, No problem reported, No see HPI Breast: No breast lump, No breast pain, No change in shape, No nipple discharge , No problem reported, No see HPI Abdomen: No GI bleeding, No constipation, No diarrhea, No nausea, No pain, No problem reported, No see HPI, No vomiting Musculoskeletal: No calf pain, No joint pain, No muscle pain, No problem reported, No see HPI, No swelling Female : No abnormal vaginal bleeding, No dysuria, No hematuria, No incontinence, No problem reported, No see HPI, No urinary frequency, No vaginal discharge Neurologic: No balance problems, No memory loss, No numbness/tingling, No paralysis, No problem reported, No see HPI, No vertigo, No weakness Psychiatric: No anhedonism, No anxiety, No depression symptoms, No insomnia, No problem reported, No see HPI, No substance abuse Heme: No abnormal bleeding/bruising, No clotting problems, No night sweats, No problem reported, No see HPI, No swollen lymph nodes Endo: No excessive thirst, No excessive urination, No fatigue, No problem reported, No see HPI Skin: No bleeding, No color change, No itch, No new/changing skin lesions, No problem reported, No rash, No see HPI Objective Vital Signs Date Time Temp Pulse Resp B/P Pulse Ox O2 Delivery O2 Flow Rate FiO2 08/28/16 15:59 Room Air 08/28/16 15:32 37.2 74 18 113/65 97 Room Air 08/28/16 12:00 Room Air 08/28/16 11:15 36.9 68 16 104/47 95 Room Air 08/28/16 10:40 37.2 62 19 105/58 98 Nasal Cannula 2 08/28/16 10:30 60 19 108/55 96 Nasal Cannula 2 08/28/16 10:20 67 18 101/56 99 Nasal Cannula 2 08/28/16 10:12 37.1 61 16 105/48 99 Nasal Cannula 2 08/28/16 08:00 Room Air 08/28/16 07:53 37.0 77 18 112/66 95 Room Air 08/28/16 05:55 37.0 77 18 112/66 95 Room Air 08/28/16 04:00 Room Air 08/28/16 03:01 36.8 90 20 128/74 94 Room Air 08/28/16 02:00 84 20 139/71 94 Room Air 08/28/16 00:36 95 19 143/73 98 Room Air 08/27/16 23:01 92 08/27/16 22:10 36.8 96 20 162/73 96 Room Air Physical Exam General Appearance: WD/WN, no apparent distress Eyes: normal inspection, PERRL, EOMI ENT: normal ENT inspection, hearing grossly normal Neck: supple, no adenopathy, thyroid normal Respiratory/Chest: chest non-tender, lungs clear, normal breath sounds, no respiratory distress, no accessory muscle use Cardiovascular: regular rate, rhythm, no edema, no gallop, no JVD, no murmur Abdomen: normal bowel sounds, non tender, soft, no organomegaly, no pulsatile mass Extremities: normal range of motion, non-tender, normal inspection, no pedal edema, no calf tenderness Neurologic/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: 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, no motor/sensory deficits, alert, normal mood/affect, oriented x 3 Skin: normal color, warm/dry, no rash Laboratory Results Last 24 Hours Test 08/27/16 22:30 08/27/16 23:29 08/28/16 07:30 White Blood Count 11.45 K/uL Red Blood Count 3.91 M/uL Hemoglobin 13.1 g/dL Hematocrit 37.6 % Mean Corpuscular Volume 96.2 fL Mean Corpuscular Hemoglobin 33.5 pg Mean Corpuscular Hemoglobin Concent 34.8 g/dl Platelet Count 288 K/uL Mean Platelet Volume 10.0 fL Neutrophils (%) (Auto) 67.3 % Lymphocytes (%) (Auto) 22.2 % Monocytes (%) (Auto) 5.4 % Eosinophils (%) (Auto) 4.1 % Basophils (%) (Auto) 0.9 % Neutrophils # (Auto) 7.71 K/uL Lymphocytes # (Auto) 2.54 K/uL Monocytes # (Auto) 0.62 K/uL Eosinophils # (Auto) 0.47 K/uL Basophils # (Auto) 0.10 K/uL RDW Standard Deviation 48.1 fL RDW Coefficient of Variation 13.7 % Immature Granulocyte % (Auto) 0.1 % Immature Granulocyte # (Auto) 0.01 K/uL Prothrombin Time 12.6 SECONDS Prothromb Time International Ratio 1.2 Activated Partial Thromboplast Time 24.8 SECONDS Partial Thromboplastin Ratio 1.0 Sodium Level 143 mmol/L 143 mmol/L Potassium Level 3.6 mmol/L 3.5 mmol/L Chloride Level 105 mmol/L 107 mmol/L Carbon Dioxide Level 24 mmol/L 25 mmol/L Anion Gap 14.0 mmol/L 11.0 mmol/L Blood Urea Nitrogen 43 mg/dl 44 mg/dl Creatinine 1.10 mg/dl 0.97 mg/dl Est Creatinine Clear Calc Drug Dose 36.2 ml/min 40.0 ml/min Estimated GFR () 53.4 62.2 Estimated GFR (Non- 46.1 53.6 BUN/Creatinine Ratio 38.7 45.8 Random Glucose 131 mg/dl 178 mg/dl Calcium Level 9.1 mg/dl 8.2 mg/dl Total Bilirubin 0.8 mg/dl Direct Bilirubin 0.2 mg/dl Aspartate Amino Transf (AST/SGOT) 28 U/L Alanine Aminotransferase (ALT/SGPT) 36 U/L Alkaline Phosphatase 55 U/L Troponin I < 0.015 ng/ml Total Protein 7.5 gm/dl Albumin 3.8 gm/dl Lipase 176 U/L Urine Color YELLOW Urine Appearance CLEAR Urine pH 5.0 Urine Specific [place] 1.019 Urine Protein NEG Urine Glucose (UA) NEG Urine Ketones 1+ Urine Occult Blood NEG Urine Nitrite NEG Urine Bilirubin NEG Urine Urobilinogen NEG Urine Leukocyte Esterase SMALL Urine WBC (Auto) 1-5 /hpf Urine RBC (Auto) 0-4 /hpf Urine Hyaline Casts (Auto) 0 /lpf Urine Epithelial Cells (Auto) >30 /lpf Urine Bacteria (Auto) NEG Magnesium Level 1.3 mg/dl Assessment and Plan 86 y/o F w/Hx HTN, hypothyroidism and incidental vascular liver mass. P/W hematemesis hematemesis S/P EGD many gastric superficial ulcers, non bleeding normal esophagus GI consult appreciated continue PPI drip then BID stop NSAIDs DC octreotide drip H&H every 8 hours HTN - continue holding diuretics and Diltiazem Hypothyroidism - switch IV Synthroid at 44mcg daily to po Liver mass - pending further outpt evaluation Full code - SCDs
[2016-08-28 19:33] VITALS: BP 109/67; PULSE 76; TEMP 36.9; O2SAT 97
[2016-08-28] MEDS ORDERED: LATANOPROST 0.005% OP SOLN 2.5 ML BTL OP SCH (21:00)
[2016-08-28 21:24] LABS: HEMATOCRIT 27.2 % (37-47)
[2016-08-28] MEDS ORDERED: ALPRAZOLAM 0.25 MG TAB PO PRN (23:00)
[2016-08-29 00:09] VITALS: BP 109/58; PULSE 78; TEMP 37; O2SAT 98
[2016-08-29 04:44] VITALS: BP 103/66; PULSE 66; TEMP 36.6; O2SAT 98
[2016-08-29] MEDS: PANTOprazole INJ 40 MG in DEXTROSE 5% 100ML IV SCH (05:53)
[2016-08-29 06:21] LABS: BASO % 0.9 %; BASO ABS # 0.08 K/uL (0-0.2); COMPLETE YES; EOS % 7.6 %; HEMATOCRIT 27.9 % (37-47); IG% 0.1 %; LYMPH % 36.4 %; LYMPH ABS # 3.14 K/uL (1.2-3.4); MEAN CELL VOLUME 99.6 fL (80-100); MEAN CORPUSCULAR HEMOGLOBIN 32.9 pg (25-34); MEAN PLATELET VOLUME 9.7 fL (7.4-10.4); MONO % 8.5 %; NEUT % 46.5 %; PLATELET COUNT 214 K/uL (130-400); WHITE BLOOD COUNT 8.63 K/uL (4.8-10.8)
[2016-08-29] MEDS ORDERED: LEVOTHYROXINE 88 MCG TAB PO SCH (06:30)
[2016-08-29 06:58] LABS: BUN/CREATININE RATIO 26.2 (10-20); CALCIUM 8.2 mg/dl (8.5-10.1); MAGNESIUM 1.6 mg/dl (1.8-2.4); POTASSIUM 3.8 mmol/L (3.5-5.1)
[2016-08-29 07:07] LABS: ALB/GLOB RATIO 1.1 (0.9-2); PHOSPHORUS 2.2 mg/dl (2.5-4.9)
[2016-08-29] MEDS: DORZOLAMIDE/TIMOLOL 22.3/6.8MG/ML 10 ML BTL OP SCH (07:53)
[2016-08-29 08:05] VITALS: BP 118/72; PULSE 76; TEMP 36.7; O2SAT 96
[2016-08-29] MEDS ORDERED: PANT40TA PO (09:14)
--- NOTE | 2016-08-29 09:22 | Discharge Instructions ---
Discharge Instructions Admission Admission Date: Aug 28, 2016 at 02:22 Admission Diagnosis: Hematemesis, Hepatocellular Carcinoma. Discharge Care Plan - Problem: Medical Problems: (1) Upper GI bleed Care Plan - Goal(s): Improve function Care Plan - Instructions: Recommended Home Diet: 1800 Nelson Wt Reduction, Clear Liquid (advance at home as tolerated, avoid spicy food) Provider Instructions: Avoid all over the counter pain medications (Non steroidal anti inflammatory drugs), except tylenol Take stool softener with the iron blood pressure meds are on hold, please obtain a blood pressure machine that goes on the arm, (not the rest), check your pressure and heart rate once a day but in a different time every day (we need some morning , some after noon and some nights readings), record both blood pressure and heart rate measurement on a sheath of paper, then in two weeks discuss it with your primary care physician , to adjust your blood pressure meds follow up with Dr. Arianna Salguero (GI physician) in 2 weeks VTE Core Measure Inpt VTE Proph given/why not?: SCD's [facility] Recommendations: Call your doctor if: * Temperature above 101 degrees * Pain not relieved by pain medicine ordered * There is increased drainage or redness from any incision * You have any unanswered questions or concerns. Your Doctors Instructions noted above were prepared by provider Tyrone oB.
--- NOTE | 2016-08-29 09:24 | Discharge Instructions ---
Discharge Instructions Admission Admission Date: Aug 28, 2016 at 02:22 Admission Diagnosis: Hematemesis, Hepatocellular Carcinoma. Discharge Care Plan - Problem: Medical Problems: (1) Upper GI bleed Care Plan - Goal(s): Decrease discomfort Care Plan - Instructions: Recommended Home Diet: 1800 Nelson Wt Reduction, Clear Liquid (advance at home as tolerated, avoid spicy food) Provider Instructions: blood pressure meds are on hold, please obtain a blood pressure machine that goes on the arm, (not the rest), check your pressure and heart rate once a day but in a different time every day (we need some morning , some after noon and some nights readings), record both blood pressure and heart rate measurement on a sheath of paper, then in two weeks discuss it with your primary care physician , to adjust your blood pressure meds Follow up with Dr. Salguero in 2 weeks VTE Core Measure Inpt VTE Proph given/why not?: SCD's [facility] Recommendations: Call your doctor if: * Temperature above 101 degrees * Pain not relieved by pain medicine ordered * There is increased drainage or redness from any incision * You have any unanswered questions or concerns. Your Doctors Instructions noted above were prepared by provider Tyrone Bo.
[2016-08-29] MEDS ORDERED: POLY335019 PO (09:27)
[2016-08-29] MEDS ORDERED: FERR1TAB13 PO (09:27)
[2016-08-29] MEDS ORDERED: SENN1TAB65 PO (09:27)
--- NOTE | 2016-08-29 09:35 | Discharge Summary ---
Discharge Summary Admission Date: Aug 28, 2016 at 02:22 Discharge Date: Aug 29, 2016 Discharge Disposition: Home Problems/Secondary Diagnoses: Upper GI bleed Multiple superficial gastric ulcers HTN Acute blood loss anemia Medication Reconciliation New Medications: Ferrous Sulfate ( Ferrous Sulfate) 325 Mg Tab 1 TAB PO BID for 30 Days, #60 TAB 3 Refills Pantoprazole Sodium (Protonix) 40 Mg Tab 40 MG PO BID for 30 Days, #60 TAB Polyethylene Glycol 3350 (Miralax) 1 Pow Pow 17 GM PO DAILY for 30 Days, #510 GM Sennosides-Docusate Sodium (Senna Plus) 1 Tab Tab 1 TAB PO BID for 30 Days, #60 Continued Medications: Alprazolam (Xanax) 0.5 Mg Tab 0.25 MG PO HS PRN for Insomnia, TAB Dorzolamide Hcl-Timolol Maleat (Cosopt Oph) 1 Mayuri Mayuri 1 DROPS OP BID, #10 ML 3 Refills Latanoprost (Xalatan 0.005% Oph Mayuri) 0.005 % Mayuri 1 DROPS OP HS, #2.5 ML 3 Refills Levothyroxine Sodium (Synthroid) 88 Mcg Tab 88 MCG PO QAM, TAB Discontinued Medications: Diltiazem Hcl Ext Rel (Tiazac) 300 Mg Capcr 300 MG PO DAILY, CAP Hctz/Spironolactone 25MG/25MG (Aldactazide 25MG/25MG) 1 Tab Tab 1 TAB PO BID, TAB Referrals At Discharge Follow up Referrals: 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 Assembly Supervisor Referral - Within 2 Weeks with Arianna Salguero, DO Discharge Exam Review of Systems: Constitutional: No chills, No fatigue, No fever, No problem reported, No sweats, No weakness, No weight loss Eyes: No diplopia, No discharge, No eye pain, No problem reported, No redness, No worsening of vision ENT: No dental problems, No hearing loss, No nasal symptoms, No problem reported, No sore throat, No tinnitus, No trouble swallowing, No unusual epistaxis Respiratory: No cough, No dyspnea at rest, No dyspnea on exertion, No hemoptysis, No problem reported, No shortness of breath, No sputum, No wheezing Cardiovascular: No PND, No chest pain, No claudication, No edema, No orthopnea, No palpitations, No problem reported Abdomen: No GI bleeding, No constipation, No diarrhea, No nausea, No pain, No problem reported, No vomiting Musculoskeletal: No calf pain, No joint pain, No muscle pain, No problem reported, No swelling Genitourinary - Female: No dysmenorrhea, No dysuria, No hematuria, No menorrhagia, No metrorrhagia, No , No problem reported, No rash, No urinary frequency, No urinary incontinence, No urinary retention, No urinary urgency, No vaginal bleeding, No vaginal discharge, No vaginal itching, No vulvodynia Neurologic: No balance problems, No memory loss, No numbness/tingling, No paralysis, No problem reported, No vertigo, No weakness Psychiatric: No anhedonism, No anxiety, No depression symptoms, No insomnia , No problem reported, No substance abuse Endocrine: No excessive thirst, No excessive urination, No fatigue, No problem reported Hematologic / Lymphatic: No abnormal bleeding/bruising, No clotting problems , No night sweats, No problem reported, No swollen lymph nodes Integumentary: No bleeding, No color change, No itch, No new/changing skin lesions, No problem reported, No rash Physical Exam: General Appearance: WD/WN, no apparent distress Eyes: normal inspection, EOMI ENT: normal ENT inspection, hearing grossly normal, TMs normal, pharynx normal Neck: supple, thyroid normal Respiratory/Chest: chest non-tender, lungs clear, normal breath sounds, no respiratory distress, no accessory muscle use Cardiovascular: regular rate, rhythm, no edema, no gallop, no JVD, no murmur Abdomen / GI: normal bowel sounds, non tender, soft, no organomegaly, no pulsatile mass, normal rectal exam Extremities: normal inspection, no calf tenderness, normal capillary refill , no pedal edema Neurologic/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 P/W hematemesis GI consult was appreciated , Dr. Salguero, S/P EGD that showed many non bleeding gastric superficial ulcers, non bleeding normal esophagus started on PPI drip then BID, then switch to po bid upon discharge advised to stop NSAIDs initially was on octreotide drip which was stopped on no esophageal varices were noted on endoscopy H&H was follwed every 8 hours, she had acute blood loss anemia, Hgb was around 9, she was started on iron supplement for HTN - blood pressure meds, were held, upon discharge she was instructed to follow up her BP and keep holding BP meds. we switch IV Synthroid at 44mcg daily to po she does have an incidental finding of vascular liver mass prior to admission that is being evaluated as an out patient This includes examination of the patient, discharge planning, medication reconciliation, and communication with other providers. Discharge Instructions Please refer to the electronic Patient Visit Report (Discharge Instructions) for additional information.
[2016-08-29] MEDS ORDERED: MAGNESIUM OXIDE 400 MG TAB PO ONE (09:45)
[2016-08-29 09:47] VITALS: BP 118/72; PULSE 76; TEMP 36.7; O2SAT 96
[2016-08-29] MEDS ORDERED: PANTOprazole INJ 40 MG in SYRINGE 0 ML IV SCH (10:00)
== END 2016-08-29 10:40 | disposition home or self-care (01) | DRG 378 ==
LOC: ENRESERVTM → ENRESERVDT → EDBD 22:03 → C.EDA 22:04 → C.MED 08-28 02:22
PROVIDERS: ADMIT Internal Medicine; ATTEND Internal Medicine
PROC: 0DB68ZX Excision of Stomach, Via Natural or Artificial Opening Endoscopic, Diagnostic (ICD-10-PCS; principal; 2016-08-28 10:00)
DX: K92.0 Hematemesis (principal); D62 Acute posthemorrhagic anemia; K25.9 Gastric ulcer, unspecified as acute or chronic, without hemorrhage or perforation; K76.89 Other specified diseases of liver; I10 Essential (primary) hypertension; E03.9 Hypothyroidism, unspecified; Z87.891 Personal history of nicotine dependence; Z79.899 Other long term (current) drug therapy

== ENCOUNTER → 2016-08-31 | Outpatient (CLI) | payer BC ==
[~2016-08-31] MED LIST changes: -DILT-117 PO; -SPIR50TA PO
[2016-08-31 17:45] LABS: COMPLETE YES; IG% 0.2 %; LYMPH % 32.2 %; LYMPH ABS # 3.16 K/uL (1.2-3.4); MEAN CELL VOLUME 97.6 fL (80-100); MEAN CORPUSCULAR HEMOGLOBIN 32.7 pg (25-34); MEAN CORPUSCULAR HGB CONC 33.4 g/dl (32-36); MEAN PLATELET VOLUME 9.7 fL (7.4-10.4); MONO % 7.6 %; PLATELET COUNT 270 K/uL (130-400); RED BLOOD COUNT 2.97 M/uL (4.2-5.4)
[2016-08-31 18:12] LABS: FERRITIN 263.7 ng/ml (8.0-388.0)
== END | disposition home or self-care (01) ==
LOC: C.LAB1850 17:19
PROVIDERS: ATTEND Internal Medicine
DX: K25.9 Gastric ulcer, unspecified as acute or chronic, without hemorrhage or perforation (principal)

== ENCOUNTER → 2016-09-08 | Outpatient (CLI) | payer BC ==
[2016-09-08 10:51] LABS: HEMATOCRIT 33.7 % (37-47)
== END | disposition home or self-care (01) ==
LOC: C.LAB1850 09:02
PROVIDERS: ATTEND Internal Medicine
DX: K92.2 Gastrointestinal hemorrhage, unspecified (principal); D64.9 Anemia, unspecified; K25.9 Gastric ulcer, unspecified as acute or chronic, without hemorrhage or perforation; E16.4 Increased secretion of gastrin

== ENCOUNTER → 2016-10-07 | Outpatient (CLI) | payer BC ==
[~2016-10-07] MED LIST changes: -PANT40TA PO; -POLY335019 PO
[2016-10-07 15:27] LABS: ALKALINE PHOSPHATASE 61 U/L (45-117); ALT/SGPT 34 U/L (12-78); AST/SGOT 29 U/L (15-37); PREALBUMIN 21.5 mg/dl (20-40)
[2016-10-12 08:29] LABS: HEPATITIS BE ANTIBODY TC 556 Nonreactive
== END | disposition home or self-care (01) ==
LOC: C.LAB1850 13:48
PROVIDERS: ATTEND Surgery
DX: R16.0 Hepatomegaly, not elsewhere classified (principal)

== ENCOUNTER → 2017-02-10 | Outpatient (CLI) | payer BC ==
[2017-02-10 16:42] LABS: HEMATOCRIT 38.5 % (37-47)
[2017-02-10 17:22] LABS: FERRITIN 81.7 ng/ml (8.0-388.0)
== END | disposition home or self-care (01) ==
LOC: C.LAB1850 15:50
PROVIDERS: ATTEND Physician Assistant
DX: D64.9 Anemia, unspecified (principal)

== ENCOUNTER → 2017-05-18 | Outpatient (CLI) | payer BC ==
[2017-05-18 15:47] LABS: BLOOD UREA NITROGEN 24 mg/dl (7-18); BUN/CREATININE RATIO 23.8 (10-20); CREATININE 1.01 mg/dl (0.60-1.20)
== END | disposition home or self-care (01) ==
LOC: C.LAB1850 14:21
PROVIDERS: ATTEND Physician Assistant
DX: K76.9 Liver disease, unspecified (principal); C22.0 Liver cell carcinoma

== ENCOUNTER → 2017-05-23 | Outpatient (CLI) | payer BC ==
[~2017-05-23] MED LIST changes: +GADOXETATE DISODIUM (NON-WT BASED PROCEDURE) IV PRN
--- NOTE | 2017-05-23 14:32 | DIAGNOSTIC IMAGING REPORT ---
LIVER MRI COMBO HISTORY: CARCINOMA OF LIVER TECHNIQUE: Multiplanar multisequence MRI of the abdomen was performed both before and after the intravenous ministration of 10 cc of Eovist contrast. COMPARISON STUDY: Abdominal MRI 07/23/2016. FINDINGS: Patient is status post resection of the right hepatic lobe mass. No masses identified in the liver to suggest recurrent or residual disease. The majority of the posterior segment of the right hepatic lobe has been resected. There are few scattered subcentimeter T2 hyperintense nonenhancing lesions within the liver consistent with cysts. The spleen, kidneys, pancreas, and adrenal glands are unremarkable. No retroperitoneal lymphadenopathy. No suspicious osseous lesions. The visualized loops of bowel show no wall thickening or obstruction. The gallbladder is not identified and likely surgically absent. IMPRESSION: Status post resection of the right hepatic lobe mass. No abnormal enhancement or masses identified within the liver to suggest recurrent or residual disease. Electronically signed by: Silas Mendez M.D. 05/23/2017 2:31 PM Dictated Date/Time: 05/23/2017 2:22 PM
== END | disposition home or self-care (01) ==
LOC: C.MRI 12:08
PROVIDERS: ATTEND Physician Assistant
DX: C22.0 Liver cell carcinoma (principal); Z90.89 Acquired absence of other organs

== ENCOUNTER → 2017-08-22 | Outpatient (CLI) | payer BC ==
[~2017-08-22] MED LIST changes: -GADOXETATE DISODIUM (NON-WT BASED PROCEDURE) IV PRN
[2017-08-22 10:05] LABS: BASO % 2.7 %; BASO ABS # 0.18 K/uL (0-0.2); EOS % 15.2 %; EOS ABS # 1.01 K/uL (0-0.5); HEMATOCRIT 40.9 % (37-47); HEMOGLOBIN 14.1 g/dL (12.0-16.0); IG# 0.01 K/uL (0.00-0.02); LYMPH % 30.9 %; LYMPH ABS # 2.06 K/uL (1.2-3.4); MEAN CORPUSCULAR HEMOGLOBIN 32.4 pg (25-34); MEAN CORPUSCULAR HGB CONC 34.5 g/dl (32-36); MEAN PLATELET VOLUME 9.6 fL (7.4-10.4); MONO % 8.6 %; MONO ABS # 0.57 K/uL (0.11-0.59); NEUT % 42.4 %; NEUT ABS # 2.83 K/uL (1.4-6.5); PLATELET COUNT 256 K/uL (130-400); RED CELL DISTRIBUTION WIDTH CV 13.4 % (11.5-14.5); RED CELL DISTRIBUTION WIDTH SD 46.3 fL (36.4-46.3); WHITE BLOOD COUNT 6.66 K/uL (4.8-10.8)
[2017-08-22 10:23] LABS: HEMOGLOBIN A1C 5.6 % (4.5-5.6)
[2017-08-22 10:48] LABS: ALBUMIN 3.5 gm/dl (3.4-5.0); ALT/SGPT 27 U/L (12-78); AST/SGOT 29 U/L (15-37); BLOOD UREA NITROGEN 21 mg/dl (7-18); CALCIUM 9.6 mg/dl (8.5-10.1); CARBON DIOXIDE 27 mmol/L (21-32); CREATININE 1.05 mg/dl (0.60-1.20); GLUCOSE 117 mg/dl (70-99); POTASSIUM 3.1 mmol/L (3.5-5.1); SODIUM 136 mmol/L (136-145)
[2017-08-22 10:54] LABS: ALKALINE PHOSPHATASE 66 U/L (45-117); CHOLESTEROL 202 mg/dl (0-200); LDL CHOLESTEROL CALCULATED 121 mg/dl; TOTAL PROTEIN 7.7 gm/dl (6.4-8.2)
== END | disposition home or self-care (01) ==
LOC: C.LAB1850 09:15
PROVIDERS: ATTEND Internal Medicine
DX: E78.00 Pure hypercholesterolemia, unspecified (principal)

== ENCOUNTER → 2017-09-08 | Outpatient (CLI) | payer BC | END | disposition home or self-care (01) | LOC: C.LAB1850 08:11 | PROVIDERS: ATTEND Internal Medicine | DX: E78.00 Pure hypercholesterolemia, unspecified (principal) ==

== ENCOUNTER → 2017-10-18 | Outpatient (CLI) | payer BC ==
[~2017-10-18] MED LIST changes: +GADOXETATE DISODIUM (NON-WT BASED PROCEDURE) IV PRN
--- NOTE | 2017-10-18 09:35 | DIAGNOSTIC IMAGING REPORT ---
MRI OF THE LIVER WITH AND WITHOUT CONTRAST CLINICAL HISTORY: Right hepatic lobe hepatocellular carcinoma status post resection. COMPARISON STUDY: MRI of the liver May 23, 2017. TECHNIQUE: Utilizing a 1.5 Ivis magnet and dedicated coil, multiplanar, multiecho imaging of the abdomen was performed pre and postcontrast administration. Post contrast imaging was performed utilizing dynamic enhancement. Injection of 10 cc of Eovist IV was uneventful. 20 minute delayed phase imaging was performed. FINDINGS: The liver is cirrhotic. There are stable postoperative findings consistent with a right hepatic lobe lesion resection. The appearance of the operative bed is unchanged with multiple foci of susceptibility artifact from the surgical material. The main, left and right portal veins are patent. No hypervascular hepatic lesions are noted. There are several subcentimeter T2 hyperintense nonenhancing hepatic lesions consistent with cysts. There is a 1 cm lesion within segment 8 of the liver which is hyperintense when compared to the background liver parenchyma on the 20 minute delayed phase imaging. This is unchanged since MRI of July 23, 2016. No new hepatic lesions are present. Caliber of the common bile duct is at the upper limits of normal following cholecystectomy. There is mild bilateral renal cortical atrophy. No pathologically enlarged abdominal lymph nodes are present. No suspicious marrow replacement is present. There is no ascites. IMPRESSION: 1. No evidence for recurrent or residual malignancy status post right hepatic lobe mass resection. Stable postoperative appearance. 2. 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 3. Cirrhotic liver. Electronically signed by: Florin Rai M.D. 10/18/2017 9:34 AM Dictated Date/Time: 10/18/2017 9:13 AM
== END | disposition home or self-care (01) ==
LOC: C.MRI 10-05 11:26
PROVIDERS: ATTEND Internal Medicine
DX: C22.0 Liver cell carcinoma (principal); R16.0 Hepatomegaly, not elsewhere classified; K76.89 Other specified diseases of liver; K74.60 Unspecified cirrhosis of liver

== ENCOUNTER → 2017-11-08 | Day surgery (SDC) | payer BC ==
[2017-11-07 11:00] VITALS: Ht 157.5 cm; Wt 61.4 kg
[~2017-11-08] VITALS: Ht 157.5 cm; Wt 61.4 kg
[~2017-11-08] MED LIST changes: +BRIMONIDINE TART 0.2% OP SOLN PER DROP CHARGE OPR ONE; +BRIMONIDINE TARTRATE 0.2% 5ML OP SCH; +BRIMONIDINE TARTRATE 0.2% 5ML OPR SCH; -DORZ1SOL6 OP; +DORZ1SOL6 OPB; -FERR1TAB13 PO; -GADOXETATE DISODIUM (NON-WT BASED PROCEDURE) IV PRN; -LATA0.5S OP; +LATA0.5S OPB; +PANT40TA PO; +PILOCARPINE HCL 2% OP SOLN 15 ML BTL OPR SCH; +PROPARACAINE 0.5% OP SOLN PER DROP CHARGE OPR SCH; +PrednisoLONE ACET 1% OP SUSP 5 ML BTL OP SCH; +PrednisoLONE ACET 1% OP SUSP 5 ML BTL OPR ONE; -SENN1TAB65 PO; +SPIR1TAB72 PO
[2017-11-08 11:26] VITALS: BP 139/77; PULSE 61; O2SAT 96
--- NOTE | 2017-11-08 11:27 | Discharge Instructions-SurgCtr ---
Discharge Instructions Date of Service November 08, 2017. Visit Reason for Visit: Glaucoma Right Eye Discharge Discharge Diagnosis / Problem: Glaucoma, right eye Discharge Goals Goal(s): Improve disease control Activity Recommendations Activity Limitations: resume your previous activity Anesthesia . Post Anesthesia Instructions: If you have had General Anesthesia or IV Sedation: * Do not drive today. * Resume driving when surgeon permits. * Do not make important decisions or sign legal documents today. * Call surgeon for: 1. Temperature elevations greater than 101 degrees F. 2. Uncontrollable pain. 3. Excessive bleeding. 4. Persistent nausea and vomiting. 5. Medication intolerance (nausea, vomiting or rash). * For nausea and vomiting use only clear liquids such as: tea, soda, bouillon until nausea subsides, then gradually increase diet as tolerated. * If you have any concerns or questions, call your surgeon's office. If physician is unavailable and it is an emergency, call 911 or go to the nearest emergency room. . Instructions / Follow-Up Instructions / Follow-Up ACTIVITY RECOMMENDATIONS: * No limitations RETURN TO SCHOOL/WORK: * No limitations DIET: * No limitations MEDICATIONS: Resume previous medications unless instructed otherwise by your surgeon. * Please use Durezol acetate drops prescription given to you at your office appointment as follows: 1 drop in effected eye 2 times a day for 5 days. * Continue all glaucoma drops as usual with no interruption to either eye. SPECIAL CARE INSTRUCTIONS: Call your doctor at with any concerns or problems. FOLLOW UP VISIT: Follow-up with Dr Mccoy in 1 hour. Diet Recommendations Home Diet: resume previous diet Pending Studies Studies pending at discharge: no Medical Emergencies . Who to Call and When: Medical Emergencies: If at any time you feel your situation is an emergency, please call 911 immediately. . Non-Emergent Contact Non-Emergency issues call your: Social Media Assistant . . "Provider Documentation" section prepared by Shai Mccoy. .
--- NOTE | 2017-11-09 11:37 | OPERATIVE REPORT ---
DATE OF OPERATION: 11/09/2017 PREOPERATIVE DIAGNOSIS: Open-angle glaucoma of the right eye. POSTOPERATIVE DIAGNOSIS: Same. ANESTHESIA: Topical proparacaine. INDICATIONS: The patient is an 87-year-old woman with uncontrolled glaucoma. DESCRIPTION OF PROCEDURE: After informed consent was obtained, the patient was brought to the laser room at the [facility]. A drop of topical proparacaine was instilled in the right eye. A trabeculoplasty focusing lens was placed in the right eye with a Goniosol lubricant. The superior 180 degrees of the trabecular meshwork was treated with 69 spots with an average power of 1.5 millijoules. The patient tolerated the procedure well and there were no complications. A drop of steroid and brimonidine were instilled in the right eye following surgery. She was instructed to come to our office an hour later for a pressure check. I attest to the content of the Intraoperative Record and any orders documented therein. Any exception s are noted below.
== END | disposition home or self-care (01) ==
LOC: X.SURG 09:43
PROVIDERS: ATTEND Ophthalmology
DX: H40.9 Unspecified glaucoma (principal)

== ENCOUNTER 2022-04-21 09:05 | Observation (INO) ==
--- NOTE | 2022-04-21 09:16 | Emergency Department Note ---
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 The patient states that she also did this because she felt as though she cannot walk well. Patient denies any chest pains or shortness of breath. The patient has had nausea with associated vomiting. No abdominal pain. The patient does have a prior history of DÍAZ and HCC for which she has received chemo and radiation treatment most recently receiving chemo at the beginning of December at [facility]. The patient did not take anything for symptoms. The patient states that symptoms have been constant. Patient does not complain of any tinnitus or difficulty with hearing. No falls or trauma the patient denies any head or neck pain. The patient states that this is not happened before. Patient denies any numbness tingling or focal weakness. No history of stroke or mini stroke. ROS: See HPI for pertinent positives and negatives. A total of 10 systems were reviewed and otherwise negative. Past medical history: See below Surgical history: See below Social history: See below Physical Exam: GENERAL: NAD, wearing a mask, non-toxic. EYE EXAM: Normal conjunctiva. PERRL, no anisocoria and EOM's grossly intact w/o pain. No nystagmus noted. NECK: Supple, no nuchal rigidity, no adenopathy, non-tender. No signs of meningismus. FROM of the neck with good chin to chest and neck extension. No stridor. LUNGS: Clear to auscultation. Normal chest wall mechanics. HEART: NSR, no MRG. ABDOMEN: Abdomen soft, non-tender, normo-active bowel sounds, no masses, no rebound or guarding. BACK: No CVA TTP. SKIN: No rashes and no bruising. UPPER EXTREMITIES: Upper extremities are grossly normal. LOWER EXTREMITIES: Grossly normal, no edema. NEURO EXAM: A&O x3, cranial nerves II-XII grossly intact, normal speech, moves all 4 extremities. Good ysktso-bl-pyav and no drift no sensory deficits. Differential diagnoses: Benign positional vertigo, dehydration, hypovolemia, anemia, tumor, infection, hypoglycemia, electrolyte abnormalities, cardiac sources, intracerebral event, toxicologic, neurologic, as well as other pathologies. Course: Patient was seen and evaluated the bedside. Full history physical exam was performed. EKG interpreted by me Sinus, rate of 89, prolonged QTC, left axis deviation, no obvious ST elevations. PVC noted. Imaging Studies: See Below Cardiac monitoring: An order was placed for continuous cardiac monitoring. The monitor shows a rate of with rhythm. MDM: Patient presents due to concern for dizziness and vertigo. Blood work was obtained along with CT of the head. CT angiography is cannot be obtained as the patient has an iodinated contrast allergy and the patient states that she is unable to receive contrast. Patient did receive IV medications to help with her symptoms. The patient's blood work showed a normal white count H&H and platelet count with normal kidney function. The patient did have change in her liver function testing with a bili of 1.6 AST and ALT at 159 and 9 respectively and alk phos of 419. Lipase was added and liver ultrasound was ordered. Liver ultrasound shows mass that is likely similar to prior MRI. Given the patient's lipase is elevated a CT of the abdomen pelvis was ordered. This does show multiple areas of likely embolization possibly secondary to the patient's history of radio ablative therapy per IR. I did reach out to the patient's primary interventional radiologist Dr. Dae Lawson at [facility]. After discussion of the patient's current symptoms and blood work he does not believe that any further intervention needs to be done at this time. The patient's liver dysfunction may be secondary to the therapy itself. The patient does not have any abdominal pain. Patient had been given additional medications for vertigo but did not have improvement in symptoms to where she can ambulate on her own. I did speak the on-call hospitalist Frida Ward PA-C and patient was admitted by Dr. Rausch. 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 Osteoporosis Tscore -2.5 L femoral neck on DXA 05/2021 Peripheral eosinophilia Primary osteoarthritis of right knee pt denies Vertigo Surgical History Hiatal hernia with repair History of cholecystectomy History of colonoscopy History of esophagogastroduodenoscopy (EGD) History of hysterectomy History of surgical procedure on eye proper using laser bilat History of tooth extraction Hx of bilateral cataract extraction Family History Father Colon cancer Colorectal cancer Denies family history of Ovarian cancer Prostate cancer Breast cancer Lung cancer Social History Smoking Status: Never smoker Second Hand Exposure: No; Hx Alcohol Use: Yes Alcohol type: wine Hx Substance Use: No Preferred Language: Fijian Communication Ability: Effective Museum Preparator Required: No Beliefs That Will Affect Care: None marital status: / Current Living Situation: Alone Current Living Situation Comment: [facility] How many Children do You have: 5 Feels Safe at Home: Yes Safety Concerns: Feels Safe At This Time Dental Care, Regularly: Yes Seatbelt Use: always Sunscreen Use: Yes Assistive Devices: None Allergies Allergies Allergy/AdvReac Type Severity Reaction Status Date / Time Iodinated Contrast Media Allergy Intermediate SWELLING Verified 04/21/22 12:35 Home Meds Home Medications Medication Instructions Recorded Confirmed latanoprost 0.005 % eye drops 1 drops OPB PM 03/02/19 04/21/22 dorzolamide 22.3 mg-timolol 6.8 1 drops OPB BID 12/25/19 04/21/22 mg/mL eye drops levothyroxine 88 mcg tablet 88 mcg PO DAILY 04/21/22 04/21/22 Previous Rx's Medication Instructions Recorded atorvastatin 20 mg tablet 20 mg PO QPM #90 tabs 05/08/21 spironolactone 25 1 tab PO DAILY #90 tabs 09/07/21 mg-hydrochlorothiazide 25 mg tablet Results & Data (ED) Vital Signs Vital Signs - 24 hr 04/21/22 14:06 04/21/22 14:06 04/21/22 14:10 Pulse Rate 83 75 Pulse Rate [Finger] Pulse Rate from SpO2 Sensor 81 73 Respiratory Rate 22 15 Blood Pressure 150/65 H Blood Pressure [Left Arm] Blood Pressure Mean 93 Blood Pressure Mean [Left Arm] Pulse Oximetry 97 98 Oxygen Delivery Method Room Air Room Air Room Air 04/21/22 14:20 04/21/22 14:30 04/21/22 14:30 Pulse Rate 72 69 Pulse Rate [Finger] Pulse Rate from SpO2 Sensor 70 70 Respiratory Rate 14 15 Blood Pressure 145/67 H Blood Pressure [Left Arm] Blood Pressure Mean 93 Blood Pressure Mean [Left Arm] Pulse Oximetry 97 95 Oxygen Delivery Method Room Air Room Air Room Air 04/21/22 14:40 04/21/22 14:50 04/21/22 16:45 Pulse Rate 71 76 Pulse Rate [Finger] 72 Pulse Rate from SpO2 Sensor 70 74 Respiratory Rate 15 20 16 Blood Pressure Blood Pressure [Left Arm] 152/67 H Blood Pressure Mean Blood Pressure Mean [Left Arm] 95 Pulse Oximetry 96 97 96 Oxygen Delivery Method Room Air Room Air Room Air Home Medications Current Medication List: was personally reviewed by me Laboratory Data Attestation: I reviewed the patient's lab results. Result diagrams: 04/21/22 09:20 04/22/22 08:34 Lab Results 04/21/22 04/21/22 04/21/22 Range/Units 09:20 09:20 09:20 WBC 8.54 (4.8-10.8) K/ul RBC 4.49 (3.93-5.22) M/uL Hgb 14.5 (12.0-16.0) g/dl Hct 41.5 (34.1-44.9) % MCV 92.4 (80.0-100.0) fL MCH 32.3 (25.0-34.0) pg MCHC 34.9 (32.0-36.0) g/dL RDW Std Deviation 52.0 H (36.4-46.3) fL RDW Coeff of Juhi 15.4 H (11.5-14.5) % Plt Count 249 (130-400) K/uL MPV 10.0 (9.4-12.3) fL Immature Gran % (Auto) 0.2 % Neut % (Auto) 47.6 % Lymph % (Auto) 25.6 % Wayne % (Auto) 12.5 % Eos % (Auto) 12.1 % Baso % (Auto) 2.0 % Neut # (Auto) 4.06 (1.4-6.5) K/uL Lymph # (Auto) 2.19 (1.2-3.4) K/uL Wayne # (Auto) 1.07 H (0.24-0.82) K/uL Eos # (Auto) 1.03 H (0-0.50) K/uL Baso # (Auto) 0.17 (0-0.2) K/uL Immature Gran # (Auto) 0.02 (0.00-0.02) K/uL Sodium 138 (136-145) mmol/L Potassium 3.4 L (3.5-5.1) mmol/L Chloride 102 (98-107) mmol/L Carbon Dioxide 24 (21-32) mmol/L Anion Gap 12 H (3-11) BUN 17 (6-23) mg/dl Creatinine 0.85 (0.6-1.2) mg/dl Est Cr Clr Drug Dosing 33.9 ml/min Est GFR ( Amer) 70.4 ml/min Est GFR (Non-Af Amer) 60.7 ml/min BUN/Creatinine Ratio 20.0 (10-20) Glucose 118 H (70-99(Fasting)) mg/dl Calcium 9.3 (8.5-10.1) mg/dl Total Bilirubin 1.6 H (0.2-1.0) mg/dl AST 150 H (13-39) U/L ALT 99 H (7-52) U/L Alkaline Phosphatase 419 H (34-104) U/L Total Protein 6.7 (6.0-8.3) gm/dl Albumin 3.0 L (3.4-5.0) gm/dl Globulin 3.7 (2.5-4.0) gm/dl Albumin/Globulin Ratio 0.8 L (0.9-2) Lipase 100 H (11-82) U/L SARS-CoV-2, RNA, NAAT (NEGATIVE) 04/21/22 Range/Units 16:45 WBC (4.8-10.8) K/ul RBC (3.93-5.22) M/uL Hgb (12.0-16.0) g/dl Hct (34.1-44.9) % MCV (80.0-100.0) fL MCH (25.0-34.0) pg MCHC (32.0-36.0) g/dL RDW Std Deviation (36.4-46.3) fL RDW Coeff of Juhi (11.5-14.5) % Plt Count (130-400) K/uL MPV (9.4-12.3) fL Immature Gran % (Auto) % Neut % (Auto) % Lymph % (Auto) % Wayne % (Auto) % Eos % (Auto) % Baso % (Auto) % Neut # (Auto) (1.4-6.5) K/uL Lymph # (Auto) (1.2-3.4) K/uL Wayne # (Auto) (0.24-0.82) K/uL Eos # (Auto) (0-0.50) K/uL Baso # (Auto) (0-0.2) K/uL Immature Gran # (Auto) (0.00-0.02) K/uL Sodium (136-145) mmol/L Potassium (3.5-5.1) mmol/L Chloride (98-107) mmol/L Carbon Dioxide (21-32) mmol/L Anion Gap (3-11) BUN (6-23) mg/dl Creatinine (0.6-1.2) mg/dl Est Cr Clr Drug Dosing ml/min Est GFR ( Amer) ml/min Est GFR (Non-Af Amer) ml/min BUN/Creatinine Ratio (10-20) Glucose (70-99(Fasting)) mg/dl Calcium (8.5-10.1) mg/dl Total Bilirubin (0.2-1.0) mg/dl AST (13-39) U/L ALT (7-52) U/L Alkaline Phosphatase (34-104) U/L Total Protein (6.0-8.3) gm/dl Albumin (3.4-5.0) gm/dl Globulin (2.5-4.0) gm/dl Albumin/Globulin Ratio (0.9-2) Lipase (11-82) U/L SARS-CoV-2, RNA, NAAT NEGATIVE (NEGATIVE) Administered Medications Dorzolamide/Timolol (Dorzolamide/Timolol 22.3/6.8mg/Ml 10 Ml Btl) 1 drops OPB BID DARREN Stop: 05/21/22 20:59 Last Admin: 04/22/22 11:23 Dose: 1 drops Documented By: LIA Co-signed By: JACE Admin: 04/21/22 22:05 Dose: 1 drops Documented By: MAYUR HCTZ/Spironolactone (Spironolactone/Hctz 25-25) 1 tab PO DAILY DARREN Stop: 05/22/22 08:59 Last Admin: 04/22/22 11:23 Dose: 1 tab Documented By: LIA Co-signed By: JACE Latanoprost (Latanoprost 0.005% Op Soln 2.5 Ml Btl) 1 drops OPB PM DARREN Stop: 05/21/22 20:59 Last Admin: 04/21/22 22:05 Dose: 1 drops Documented By: AMYUR Levothyroxine Sodium (Levothyroxine Sodium 88 Mcg Tablet) 88 mcg PO DAILYBB DARREN Stop: 05/22/22 06:29 Last Admin: 04/22/22 05:44 Dose: 88 mcg Documented By: MAYUR Meclizine HCl (Meclizine Hcl 25 Mg Tab) 25 mg PO TID PRN PRN Reason: dizziness Stop: 05/21/22 20:52 Last Admin: 04/22/22 09:56 Dose: 25 mg Documented By: SARINA Melatonin (Melatonin 3 Mg Tab) 6 mg PO HS PRN PRN Reason: Sleep Stop: 05/21/22 21:40 Last Admin: 04/21/22 22:05 Dose: 6 mg Documented By: MAYUR Discontinued Medications Sodium Chloride (Nss) 500 mls @ 999 mls/hr IV .Q31M DARREN Stop: 04/21/22 10:15 Last Infusion: 04/21/22 10:17 Dose: 0 mls/hr Documented By: Admin: 04/21/22 09:48 Dose: 999 mls/hr Documented By: KIRAN Sodium Chloride (Nss 1000ml) 500 mls @ 999 mls/hr IV .Q31M ONE Stop: 04/21/22 14:13 Last Infusion: 04/21/22 14:49 Dose: 0 mls/hr Documented By: Admin: 04/21/22 14:07 Dose: 999 mls/hr Documented By: RADHA Lactated Ringer's (Lr) 1,000 mls @ 80 mls/hr IV .[id number] DARREN Stop: 04/22/22 09:22 Last Infusion: 04/22/22 10:04 Dose: 0 mls/hr Documented By: Admin: 04/21/22 21:17 Dose: 80 mls/hr Documented By: MAYUR Ibuprofen (Ibuprofen 600 Mg Tab) 600 mg PO ONE ONE Stop: 04/22/22 06:02 Last Admin: 04/22/22 06:31 Dose: 600 mg Documented By: MAYUR Meclizine HCl (Meclizine Hcl 25 Mg Tab) 25 mg PO NOW STA Stop: 04/21/22 13:44 Last Admin: 04/21/22 14:05 Dose: 25 mg Documented By: RADHA Ondansetron HCl (Ondansetron Inj 2 Mg/Ml 2 Ml Vial) 4 mg IV NOW STA Stop: 04/21/22 09:35 Last Admin: 04/21/22 09:47 Dose: Not Given Documented By: KIRAN Ondansetron HCl (Ondansetron Inj 2 Mg/Ml 2 Ml Vial) 4 mg IV NOW STA Stop: 04/21/22 16:39 Last Admin: 04/21/22 16:45 Dose: 4 mg Documented By: NASIM Prochlorperazine (Prochlorperazine 5 Mg/Ml 2 Ml Vial) 5 mg IV NOW STA Stop: 04/21/22 09:35 Last Admin: 04/21/22 09:48 Dose: 5 mg Documented By: KIRAN Imaging Data Radiologist's Impression: Head CT 04/21/22 09:34 CT head/brain wo con CLINICAL HISTORY: 89 years-old Female with vertigo. Acute vertigo TECHNIQUE: Multiple axial CT images of the head were obtained without contrast. A dose lowering technique was utilized adhering to the principles of ALARA. CT DOSE: 614.27 mGy.cm COMPARISON: None. FINDINGS: No acute intracranial hemorrhage, midline shift, intracranial mass, hydrocephalus, territorial ischemia or abnormal extra-axial collection. In volutional changes with white matter hypodensities suggestive of chronic microvascular ischemic disease.. Senescent calcifications of the basal ganglia. Cerebral vascular calcifications. The calvarium is intact. Prior bilateral lens repair. Partially calcified subcutaneous lesion of the occipital scalp measuring 1.6 cm is likely benign. The paranasal sinuses, mastoid air cells, and middle ear cavities are clear. IMPRESSION: No acute intracranial abnormality ACT 112: Negative or not required by law. The above report was generated using voice recognition software. It may contain grammatical, syntax or spelling errors. Electronically signed by: Gume Juarez M.D. 04/21/2022 10:25 AM Liver Ultrasound 04/21/22 11:33 ABDOMINAL ULTRASOUND, RIGHT UPPER QUADRANT HISTORY: h/o hepatocellular carcinoma, worsening LFTs. COMPARISON: Abdominal MRI 11/16/2021. FINDINGS: Pancreas: The pancreatic tail is obscured by overlying bowel gas. The remaining portions of the pancreas are within normal limits. Liver: Nodular contour to the liver consistent with cirrhosis. The liver is diffusely heterogeneous resulting in difficult evaluation for a hepatic mass. There is 1.8 cm mass within the right hepatic lobe which is similar to the prior abdominal MRI. The additional hepatic masses are not well visualized by this modality. The main and right hepatic and portal veins are patent and demonstrate normal direction of flow. The left popliteal vein the left hepatic vein are not well visualized due to overlying bowel. There is reversal of flow at the portosplenic confluence. Gallbladder: The gallbladder is surgically absent. CBD: 8 mm Right kidney: No hydronephrosis. IMPRESSION: 1. Cirrhotic liver containing a 1.8 cm mass. This is similar to the prior MRI. Additional hepatic masses are not well visualized by this modality. 2. Cholecystectomy. 3. Reversal flow at the portosplenic confluence. ACT 112: Negative or not required by law. Electronically signed by: Silas Mendez M.D. 04/21/2022 12:42 PM Abdomen/Pelvis CT 04/21/22 12:[address] WITHOUT CONTRAST CT DOSE: 724.90 mGycm HISTORY: transaminitis, h/o HCC, elevated lipase w/ vomiting TECHNIQUE: Multiaxial CT images of the abdomen and pelvis were performed without contrast. A dose lowering technique was utilized adhering to the principles of ALARA. COMPARISON STUDY: Abdominal MRI 11/16/2021 FINDINGS: Mild dependent changes seen at the lung bases. No pneumoperitoneum. No pneumatosis. 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 There are subacute mild superior endplate compression fractures at T10 and T11. The T11 compression fracture demonstrates 3 mm of retropulsion resulting in mild central canal narrowing at this level. Nodular contour to the liver consistent with cirrhosis. Scattered clusters of hyperdense foci seen throughout the liver which are new from the prior study. This favors post embolization/treatment changes. Moderate intrahepatic and extrahepatic bile duct dilatation has slightly progressed. There are 2 similar-appearing adjacent hypodense foci within the junction of the right/left hepatic lobe measuring 3.6 and 3.3 cm in size. These are best seen on images 73 through 90. Postoperative changes consistent with prior partial right hepatectomy. Prior cholecystectomy. There is a punctate stone within the right kidney. No ureteral stones. No hydronephrosis. Mild perinephric and mesenteric edema. The bladder is unremarkable. Prior hysterectomy. Suboptimal evaluation for bowel pathology due to the lack of intravenous and oral contrast. However, there is no definite bowel wall thickening or obstruction. Colonic diverticulosis. No evidence for acute diverticulitis. Questionable thickening of the descending colon is likely due to underdistention. Normal appendix. No retroperitoneal lymphadenopathy. Left para- aortic varicosities are noted. Calcified plaque within the normal caliber abdominal aorta. The spleen is normal in size. The unenhanced pancreas and adrenal glands are unremarkable. IMPRESSION: 1. Multiple scattered clusters of hyperdense foci seen throughout the liver which are new from the prior study. This favors post embolization/treatment changes. 2. There are 2 similar-appearing hypodense foci within the liver with the largest at the hepatic dome measuring 3.6 cm. These are indeterminate but new from the prior study. This also favors post embolization changes. A hepatic abscess could also have a similar appearance in the appropriate clinical setting but is considered less likely. 3. Cirrhotic liver. 4. Right-sided nephrolithiasis. No hydronephrosis. 5. Colonic diverticulosis. No evidence for acute diverticular this. 6. Normal appendix. 7. Subacute mild superior endplate compression fractures at T10 and T11. 8. Moderate intra and extrahepatic bile duct dilatation which has slightly progressed in the interval. ACT 112: Negative or not required by law. Electronically signed by: Silas Mendez M.D. 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
[2022-04-21] MEDS ORDERED: PROCHLORPERAZINE 5 MG/ML 2 ML VIAL IV STA (09:34)
[2022-04-21] MEDS ORDERED: ONDANSETRON INJ 2 MG/ML 2 ML VIAL IV STA ×2 (09:34→16:38)
[2022-04-21] MEDS ORDERED: SODIUM CHLORIDE 0.9% 500 ML IV SCH (09:45)
[2022-04-21 09:56] LABS: Basophils # (auto) 0.17 K/uL (0-0.2); Eosinophils # (auto) 1.03 K/uL (0-0.50); Eosinophils % (auto) 12.1 %; Hematocrit (blood only) 41.5 % (34.1-44.9); Hemoglobin 14.5 g/dl (12.0-16.0); Immature Granulocytes # (auto) 0.02 K/uL (0.00-0.02); Immature Granulocytes % (auto) 0.2 %; Lymphocytes # (auto) 2.19 K/uL (1.2-3.4); Lymphocytes % (auto) 25.6 %; Mean Corpuscular Hemoglobin 32.3 pg (25.0-34.0); Mean Corpuscular Hgb Conc 34.9 g/dL (32.0-36.0); Mean Corpuscular Volume 92.4 fL (80.0-100.0); Monocytes # (auto) 1.07 K/uL (0.24-0.82); Monocytes % (auto) 12.5 %; Neutrophils # (auto) 4.06 K/uL (1.4-6.5); Neutrophils % (auto) 47.6 %; Platelet Count 249 K/uL (130-400); RDW Coefficient of Variation 15.4 % (11.5-14.5); Red Blood Count 4.49 M/uL (3.93-5.22); White Blood Count 8.54 K/ul (4.8-10.8)
--- NOTE | 2022-04-21 10:27 | CT Scan Report ---
CT head/brain wo con CLINICAL HISTORY: 89 years-old Female with vertigo. Acute vertigo TECHNIQUE: Multiple axial CT images of the head were obtained without contrast. A dose lowering tech nique was utilized adhering to the principles of ALARA. CT DOSE: 614.27 mGy.cm COMPARISON: None. FINDINGS: No acute intracranial hemorrhage, midline shift, intracranial mass, hydrocephalus, territorial ischem ia or abnormal extra-axial collection. Involutional changes with white matter hypodensities suggestiv e of chronic microvascular ischemic disease.. Senescent calcifications of the basal ganglia. Cerebral vascular calcifications. The calvarium is intact. Prior bilateral lens repair. Partially calcified subcutaneous lesion of the occipital scalp measuring 1.6 cm is likely benign. The paranasal sinuses, mastoid air cells, and midd le ear cavities are clear. IMPRESSION: No acute intracranial abnormality ACT 112: Negative or not required by law. The above report was generated using voice recognition software. It may contain grammatical, syntax o r spelling errors. Electronically signed by: Gume Juarez M.D. 04/21/2022 10:25 AM
[2022-04-21 10:36] LABS: Albumin Globulin Ratio 0.8 (0.9-2); Bilirubin,Total 1.6 mg/dl (0.2-1.0); Calcium 9.3 mg/dl (8.5-10.1); Creatinine Clr Calc Pharmacy 33.9 ml/min; Est GFR (African American) 70.4 ml/min; Est GFR (Non-African American) 60.7 ml/min; Globulin 3.7 gm/dl (2.5-4.0); Potassium 3.4 mmol/L (3.5-5.1); Total Protein 6.7 gm/dl (6.0-8.3)
--- NOTE | 2022-04-21 12:44 | Ultrasound Report ---
ABDOMINAL ULTRASOUND, RIGHT UPPER QUADRANT HISTORY: h/o hepatocellular carcinoma, worsening LFTs. COMPARISON: Abdominal MRI 11/16/2021. FINDINGS: Pancreas: The pancreatic tail is obscured by overlying bowel gas. The remaining portions of the pancr eas are within normal limits. Liver: Nodular contour to the liver consistent with cirrhosis. The liver is diffusely heterogeneous r esulting in difficult evaluation for a hepatic mass. There is 1.8 cm mass within the right hepatic lo be which is similar to the prior abdominal MRI. The additional hepatic masses are not well visualized by this modality. The main and right hepatic and portal veins are patent and demonstrate normal dire ction of flow. The left popliteal vein the left hepatic vein are not well visualized due to overlying bowel. There is reversal of flow at the portosplenic confluence. Gallbladder: The gallbladder is surgically absent. CBD: 8 mm Right kidney: No hydronephrosis. IMPRESSION: 1. Cirrhotic liver containing a 1.8 cm mass. This is similar to the prior MRI. Additional hepatic mas ses are not well visualized by this modality. 2. Cholecystectomy. 3. Reversal flow at the portosplenic confluence. ACT 112: Negative or not required by law. Electronically signed by: Silas Mendez M.D. 04/21/2022 12:42 PM
[2022-04-21] MEDS ORDERED: SODIUM CHLORIDE 0.9% 1000ML 500 ML IV ONE (13:43)
[2022-04-21] MEDS ORDERED: MECLIZINE HCL 25 MG TAB PO STA (13:43)
--- NOTE | 2022-04-21 14:36 | Electrocardiogram Report ---
Test Reason : Blood Pressure : / mmHG Vent. Rate : 089 BPM Atrial Rate : 089 BPM P-R Int : 146 ms QRS Dur : 118 ms QT Int : 410 ms P-R-T Axes : 095 -35 -09 degrees QTc Int : 498 ms Sinus rhythm with occasional Premature ventricular complexes and Premature atrial complexes Left axis deviation Low voltage QRS Right bundle branch block Inferior infarct , age undetermined Abnormal ECG No previous ECGs available Confirmed by Niall Henderson ([id number]) on 04/21/2022 2:36:08 PM Referred By: Confirmed By:Niall Henderson
--- NOTE | 2022-04-21 14:56 | CT Scan Report ---
ABDOMEN AND PELVIS CT WITHOUT CONTRAST CT DOSE: 724.90 mGycm HISTORY: transaminitis, h/o HCC, elevated lipase w/ vomiting TECHNIQUE: Multiaxial CT images of the abdomen and pelvis were performed without contrast. A dose lo wering technique was utilized adhering to the principles of ALARA. COMPARISON STUDY: Abdominal MRI 11/16/2021 FINDINGS: Mild dependent changes seen at the lung bases. No pneumoperitoneum. No pneumatosis. 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 There are subacute mild superior endplat e compression fractures at T10 and T11. The T11 compression fracture demonstrates 3 mm of retropulsio n resulting in mild central canal narrowing at this level. Nodular contour to the liver consistent wi th cirrhosis. Scattered clusters of hyperdense foci seen throughout the liver which are new from the prior study. This favors post embolization/treatment changes. Moderate intrahepatic and extrahepatic bile duct dilatation has slightly progressed. There are 2 similar-appearing adjacent hypodense foci w ithin the junction of the right/left hepatic lobe measuring 3.6 and 3.3 cm in size. These are best se en on images 73 through 90. Postoperative changes consistent with prior partial right hepatectomy. Pr ior cholecystectomy. There is a punctate stone within the right kidney. No ureteral stones. No hydron ephrosis. Mild perinephric and mesenteric edema. The bladder is unremarkable. Prior hysterectomy. Sub optimal evaluation for bowel pathology due to the lack of intravenous and oral contrast. However, the re is no definite bowel wall thickening or obstruction. Colonic diverticulosis. No evidence for acute diverticulitis. Questionable thickening of the descending colon is likely due to underdistention. No rmal appendix. No retroperitoneal lymphadenopathy. Left para-aortic varicosities are noted. Calcified plaque within the normal caliber abdominal aorta. The spleen is normal in size. The unenhanced pancr eas and adrenal glands are unremarkable. IMPRESSION: 1. Multiple scattered clusters of hyperdense foci seen throughout the liver which are new from the pr ior study. This favors post embolization/treatment changes. 2. There are 2 similar-appearing hypodense foci within the liver with the largest at the hepatic dome measuring 3.6 cm. These are indeterminate but new from the prior study. This also favors post emboli zation changes. A hepatic abscess could also have a similar appearance in the appropriate clinical se tting but is considered less likely. 3. Cirrhotic liver. 4. Right-sided nephrolithiasis. No hydronephrosis. 5. Colonic diverticulosis. No evidence for acute diverticular this. 6. Normal appendix. 7. Subacute mild superior endplate compression fractures at T10 and T11. 8. Moderate intra and extrahepatic bile duct dilatation which has slightly progressed in the interval . ACT 112: Negative or not required by law. Electronically signed by: Silas Mendez M.D. 04/21/2022 2:55 PM
--- NOTE | 2022-04-21 16:49 | History & Physical Report ---
Date of Service April 21, 2022 Assessment & Plan (1) Vertigo: Plan: - Intractable dizziness, nausea, vomiting since last evening. Somewhat improved with IVF, antiemetics, meclizine in ED but some residual symptoms. patient lives alone and afraid to go home too soon in case symptoms recur. - IV w/ LRs at 80 cc/hr, meclizine prn for dizziness, 1st line Zofran, 2nd line Compazine for nausea/vomiting. - CVA was considered and head CT was obtained in the ED without any acute abnormalities noted. Unfortunately, patient has contrast allergy and cannot undergo head/neck CTA. - Her nausea and vomiting, as well as dizziness is much improved, and she is not having any other neurological deficits such as limb numbness/tingling/weakness, slurred speech, word finding difficulty, or facial droop. Therefore will defer imaging and further work-up CVA. - PT and OT to evaluate patient. (2) Hepatocellular carcinoma: Plan: - s/p chemo in December at [facility]. - new liver foci seen on CT A/P today. ED provider spoke with her interventional radiology doctor at [facility] to discuss changes seen on liver ultrasound and CT. At this time, he feels these are expected changes given her previous treatments and does not require urgent evaluation or transfer. Recommend she keep her follow-up appointment with [facility] next week. 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 (4) Hypertension: Plan: - Continue spironolactone. (5) Hypercholesterolemia: Plan: - Hold stain given worsening liver function. (6) Hypothyroidism: Plan: - Continue Synthroid. (7) Glaucoma: Plan: - Continue eyedrops. Plan - OBS med surg. - SCDs for VTE ppx. - DNR/DNI. History of Present Illness Chief Complaint: dizzy, n/v since last evening Primary Care Provider: Celsa Patton MD Lukas Ojeda is a 89-year-old female past medical history significant for DÍAZ cirrhosis, HCC, hypertension, CKD, glaucoma, and hypothyroidism who presented to the ED this morning with dizziness. He got up in the middle the night to use the bathroom and noticed that she was little dizzy with vertigo symptoms and difficulty walking so she went back to bed. She has been nauseous and vomiting since she woke up this morning, but no fever or chills, body aches, chest pain, palpitations, shortness of breath, abdominal pain, diarrhea, constipation, or blood in stools. She not had any falls. In the ED, her labs are fairly unremarkable with a slightly low potassium of 3.4, AG 12. LFTs are elevated from November, however consistent with labs from 2 days ago, T bili 1.6, AST 150, ALT 199, alk phos 419. Albumin low at 3. Her lipase is 100. She has no white count or new anemia. Head CT unremarkable, liver U/a shows a cirrhotic liver with a 1.8 cm mass similar to previous MRI. She is s/p cholecystectomy. CBD [address] A/P shows moderate intra and extrahepatic bile duct dilation slightly progressed. There are scattered clusters of hypodense foci seen to the liver which are new from prior study favoring postembolization and/treatment changes. 2 similar-appearing evidence foci within the liver the largest hepatic dome measuring 2.6 cm are indeterminate but new from prior study also favoring postembolization change. Hepatic abscess is also similar appearance, however less likely. There is right-sided nephrolithiasis without hydronephrosis. Diverticulosis without acute diverticulitis. Appendix appears normal. There is subacute mild superior endplate compression fracture at T10 and T11. Allergies Allergy/AdvReac Type Severity Reaction Status Date / Time Iodinated Contrast Media Allergy Intermediate SWELLING Verified 04/21/22 12:35 Home Medications Medication Instructions Recorded Confirmed Type latanoprost 0.005 % eye drops 1 drops OPB PM 03/02/19 04/21/22 History dorzolamide 22.3 mg-timolol 6.8 1 drops OPB BID 12/25/19 04/21/22 History mg/mL eye drops atorvastatin 20 mg tablet 20 mg PO QPM #90 tabs 05/08/21 04/21/22 Rx spironolactone 25 1 tab PO DAILY #90 tabs 09/07/21 04/21/22 Rx mg-hydrochlorothiazide 25 mg tablet levothyroxine 88 mcg tablet 88 mcg PO DAILY 04/21/22 04/21/22 History Past Med/Surg History Medical History (Updated 04/21/22 @ 16:47 by Frida Ward PA-C) Hepatocellular carcinoma Hypercholesterolemia Hypertension Hypothyroidism 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 Osteoporosis Tscore -2.5 L femoral neck on DXA 05/2021 Peripheral eosinophilia Primary osteoarthritis of right knee pt denies Vertigo Surgical History Hiatal hernia with repair History of cholecystectomy History of colonoscopy History of esophagogastroduodenoscopy (EGD) History of hysterectomy History of surgical procedure on eye proper using laser bilat History of tooth extraction Hx of bilateral cataract extraction Family History Father Colon cancer Colorectal cancer Denies family history of Ovarian cancer Prostate cancer Breast cancer Lung cancer Social History Smoking Status: Former smoker Second Hand Exposure: No; Hx Alcohol Use: Yes Alcohol type: wine and hard liquor Hx Substance Use: No Preferred Language: Tongan Communication Ability: Effective Auto Damage Insurance Appraiser Required: No Beliefs That Will Affect Care: None Current Living Situation: Alone Current Living Situation Comment: the [facility] Feels Safe at Home: Yes Dental Care, Regularly: Yes Seatbelt Use: always Sunscreen Use: Yes Assistive Devices: Glasses Review of Systems Review of Systems: Constitutional: No fever/chills, weakness, fatigue, myalgias, anorexia, night sweats Eyes: No diplopia, no worsening or blurred vision ENT: dizziness since last evening without head/neck pain or visual changes; normal hearing, no trouble swallowing Respiratory: No cough, sputum, dyspnea at rest or on exertion Cardiovascular: No chest pain, tightness or palpitations Abdomen: , nausea, vomiting since last evening; no pain, diarrhea or constipation : Denies dysuria, hematuria, increased urgency/frequency, urinary retention Musculoskeletal: No joint pain, calf pain, swelling Neurologic: No weakness, numbness/tingling, or balance problems Psychiatric: No anxiety or depression Skin: No rash or itch Physical Exam Physical Exam: General: awake, alert, no apparent distress Head: Normocephalic, atraumatic ENT: PERRL, EOMI, no pharyngeal exudate, mucous membranes moist Chest: Clear to auscultation, on room air, no adventitious breath sounds Cardiac: Regular rate and rhythm, no murmur, no JVD, normal peripheral pulses, good capillary refill Abdominal: NABS x 4 quadrants, soft, nontender to palpation, no rebound, guarding or tenderness Extremities: Normal inspection, no peripheral edema or erythema, calfs nontender to palpation Psych: Normal mood and affect Neuro: AAO x 3, strength intact bilaterally and rated 5/5, no motor deficits, speech is clear, no peripheral sensory deficits Skin: no rash or erythema Results & Data Results & Data ([facility]) Vital Signs (Past 12 Hours) Vital Signs Temp Pulse Pulse Resp BP BP Pulse Ox 04/21/22 14:50 76 20 97 04/21/22 14:40 71 15 96 04/21/22 14:30 69 15 95 04/21/22 14:30 145/67 H 04/21/22 14:20 72 14 97 04/21/22 14:10 75 15 98 04/21/22 14:06 150/65 H 04/21/22 14:06 83 22 97 04/21/22 14:04 04/21/22 11:40 62 18 95 04/21/22 11:30 62 13 95 04/21/22 11:30 133/65 04/21/22 11:20 68 18 96 04/21/22 11:10 56 L 14 94 04/21/22 11:00 67 95 04/21/22 11:00 137/61 04/21/22 10:50 56 L 17 96 04/21/22 10:40 62 13 95 04/21/22 10:30 63 13 96 04/21/22 10:30 146/59 H 04/21/22 10:20 63 12 94 04/21/22 10:15 72 18 95 04/21/22 10:15 149/67 H 04/21/22 10:14 72 19 95 04/21/22 09:50 78 18 95 04/21/22 09:40 72 22 96 04/21/22 09:30 68 18 96 04/21/22 09:30 165/64 H 04/21/22 09:20 70 18 95 04/21/22 09:17 75 18 92 04/21/22 09:50 78 20 165/64 H 95 04/21/22 09:17 95 04/21/22 09:11 37 C 77 20 171/114 H 95 O2 Del Method 04/21/22 14:50 Room Air 04/21/22 14:40 Room Air 04/21/22 14:30 Room Air 04/21/22 14:30 Room Air 04/21/22 14:20 Room Air 04/21/22 14:10 Room Air 04/21/22 14:06 Room Air 04/21/22 14:06 Room Air 04/21/22 14:04 Room Air 04/21/22 11:40 04/21/22 11:30 04/21/22 11:30 04/21/22 11:20 04/21/22 11:10 04/21/22 11:00 04/21/22 11:00 04/21/22 10:50 04/21/22 10:40 04/21/22 10:30 04/21/22 10:30 04/21/22 10:20 04/21/22 10:15 04/21/22 10:15 04/21/22 10:14 04/21/22 09:50 04/21/22 09:40 04/21/22 09:30 04/21/22 09:30 04/21/22 09:20 04/21/22 09:17 04/21/22 09:50 Room Air 04/21/22 09:17 Room Air 04/21/22 09:11 Room Air Laboratory Results Abnormal lab results 04/21/22 04/21/22 04/21/22 Range/Units 09:20 09:20 09:20 RDW Std Deviation 52.0 H (36.4-46.3) fL RDW Coeff of Juhi 15.4 H (11.5-14.5) % [place] # (Auto) 1.07 H (0.24-0.82) K/uL Eos # (Auto) 1.03 H (0-0.50) K/uL Potassium 3.4 L (3.5-5.1) mmol/L Anion Gap 12 H (3-11) Glucose 118 H (70-99(Fasting)) mg/dl Total Bilirubin 1.6 H (0.2-1.0) mg/dl AST 150 H (13-39) U/L ALT 99 H (7-52) U/L Alkaline Phosphatase 419 H (34-104) U/L Albumin 3.0 L (3.4-5.0) gm/dl Albumin/Globulin Ratio 0.8 L (0.9-2) Lipase 100 H (11-82) U/L Diagnostic Findings Head CT 04/21/22 09:34 CT head/brain wo con CLINICAL HISTORY: 89 years-old Female with vertigo. Acute vertigo TECHNIQUE: Multiple axial CT images of the head were obtained without contrast. A dose lowering technique was utilized adhering to the principles of ALARA. CT DOSE: 614.27 mGy.cm COMPARISON: None. FINDINGS: No acute intracranial hemorrhage, midline shift, intracranial mass, hydrocephalus, territorial ischemia or abnormal extra-axial collection. Involutional changes with white matter hypodensities suggestive of chronic microvascular ischemic disease.. Senescent calcifications of the basal ganglia. Cerebral vascular calcifications. The calvarium is intact. Prior bilateral lens repair. Partially calcified subcutaneous lesion of the occipital scalp measuring 1.6 cm is likely benign. The paranasal sinuses, mastoid air cells, and middle ear cavities are clear. IMPRESSION: No acute intracranial abnormality ACT 112: Negative or not required by law. The above report was generated using voice recognition software. It may contain grammatical, syntax or spelling errors. Electronically signed by: Gume Juarez M.D. 04/21/2022 10:25 AM Liver Ultrasound 04/21/22 11:33 ABDOMINAL ULTRASOUND, RIGHT UPPER QUADRANT HISTORY: h/o hepatocellular carcinoma, worsening LFTs. COMPARISON: Abdominal MRI 11/16/2021. FINDINGS: Pancreas: The pancreatic tail is obscured by overlying bowel gas. The remaining portions of the pancreas are within normal limits. Liver: Nodular contour to the liver consistent with cirrhosis. The liver is diffusely heterogeneous resulting in difficult evaluation for a hepatic mass. There is 1.8 cm mass within the right hepatic lobe which is similar to the prior abdominal MRI. The additional hepatic masses are not well visualized by this modality. The main and right hepatic and portal veins are patent and demonstrate normal direction of flow. The left popliteal vein the left hepatic vein are not well visualized due to overlying bowel. There is reversal of flow at the portosplenic confluence. Gallbladder: The gallbladder is surgically absent. CBD: 8 mm Right kidney: No hydronephrosis. IMPRESSION: 1. Cirrhotic liver containing a 1.8 cm mass. This is similar to the prior MRI. Additional hepatic masses are not well visualized by this modality. 2. Cholecystectomy. 3. Reversal flow at the portosplenic confluence. ACT 112: Negative or not required by law. Electronically signed by: Silas Mendez M.D. 04/21/2022 12:42 PM Abdomen/Pelvis CT 04/21/22 12:[address] WITHOUT CONTRAST CT DOSE: 724.90 mGycm HISTORY: transaminitis, h/o HCC, elevated lipase w/ vomiting TECHNIQUE: Multiaxial CT images of the abdomen and pelvis were performed without contrast. A dose lowering technique was utilized adhering to the principles of ALARA. COMPARISON STUDY: Abdominal MRI 11/16/2021 FINDINGS: Mild dependent changes seen at the lung bases. No pneumoperitoneum. No pneumatosis. 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 There are subacute mild superior endplate compression fractures at T10 and T11. The T11 compression fracture demonstrates 3 mm of retropulsion resulting in mild central canal narrowing at this level. Nodular contour to the liver consistent with cirrhosis. Scattered clusters of hyperdense foci seen throughout the liver which are new from the prior study. This favors post embolization/treatment changes. Moderate intrahepatic and extrahepatic bile duct dilatation has slightly progressed. There are 2 similar-appearing adjacent hypodense foci within the junction of the right/left hepatic lobe measuring 3.6 and 3.3 cm in size. These are best seen on images 73 through 90. Postoperative changes consistent with prior partial right hepatectomy. Prior cholecystectomy. There is a punctate stone within the right kidney. No ureteral stones. No hydronephrosis. Mild perinephric and mesenteric edema. The bladder is unremarkable. Prior hysterectomy. Suboptimal evaluation for bowel pathology due to the lack of intravenous and oral contrast. However, there is no definite bowel wall thickening or obstruction. Colonic diverticulosis. No evidence for acute diverticulitis. Questionable thickening of the descending colon is likely due to underdistention. Normal appendix. No retroperitoneal lymphadenopathy. Left para- aortic varicosities are noted. Calcified plaque within the normal caliber abdominal aorta. The spleen is normal in size. The unenhanced pancreas and adrenal glands are unremarkable. IMPRESSION: 1. Multiple scattered clusters of hyperdense foci seen throughout the liver which are new from the prior study. This favors post embolization/treatment changes. 2. There are 2 similar-appearing hypodense foci within the liver with the largest at the hepatic dome measuring 3.6 cm. These are indeterminate but new from the prior study. This also favors post embolization changes. A hepatic abscess could also have a similar appearance in the appropriate clinical setting but is considered less likely. 3. Cirrhotic liver. 4. Right-sided nephrolithiasis. No hydronephrosis. 5. Colonic diverticulosis. No evidence for acute diverticular this. 6. Normal appendix. 7. Subacute mild superior endplate compression fractures at T10 and T11. 8. Moderate intra and extrahepatic bile duct dilatation which has slightly progressed in the interval. ACT 112: Negative or not required by law. Electronically signed by: Silas Mendez M.D. 04/21/2022 2:55 PM ECG Additional Comments: Sinus rhythm with occasional Premature ventricular complexes and Premature atrial complexes Left axis deviation Low voltage QRS Right bundle branch block Inferior infarct , age undetermined Abnormal ECG No previous ECGs available Confirmed by Niall Henderson ([id number]) on 04/21/2022 2:36:08 PM. Supervising Physician Co-Signing Physician Notes Patient seen and examined, chart reviewed, case discussed with Frida Ward PA-C and I agree with the assessment and plan as above except as otherwise noted Labs and images reviewed Yenifer is an 89-year-old female who presents with intractable dizziness, nausea, vomiting of 1 day. Has improved somewhat in ER. Improved significantly at time of admission evaluation, but not completely resolved. No other focal neurologic deficits. Has a contrast allergy with swelling, given improving symptoms and no other focal neurologic symptoms since CTA deferred on risk/benefits evaluation of contrast with pretreatment. We will follow overnight as above. [place] Feeder strength, ankle dorsiflexion/plantarflexion intact. Exam of extremities equally. HCC with new liver foci on A/P, was discussed with Reta as above and recommended treatment for vertigo and outpatient follow-up with [facility] after discharge. Continue home spironolactone/HCTZ. 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
[2022-04-21] MEDS ORDERED: LACTATED RINGER'S 1,000 ML IV SCH (20:53)
[2022-04-21] MEDS ORDERED: PROCHLORPERAZINE 5 MG in SYRINGE 4 ML IV PRN (20:53)
[2022-04-21] MEDS ORDERED: ONDANSETRON INJ 2 MG/ML 2 ML VIAL IV PRN (20:53)
[2022-04-21] MEDS ORDERED: POLYETHYLENE (MIRALAX) 17 GM PACK PO PRN (20:53)
[2022-04-21] MEDS: DORZOLAMIDE/TIMOLOL 22.3/6.8MG/ML 10 ML BTL OPB SCH (22:05)
[2022-04-21] MEDS: MELATONIN 3 MG TAB PO PRN (22:05)
[2022-04-21] MEDS: LATANOPROST 0.005% OP SOLN 2.5 ML BTL OPB SCH (22:05)
[2022-04-22] MEDS: LEVOTHYROXINE SODIUM 88 MCG TABLET PO SCH (05:44)
[2022-04-22] MEDS ORDERED: IBUPROFEN 600 MG TAB PO ONE (06:01)
[2022-04-22 09:17] LABS: Albumin Globulin Ratio 0.8 (0.9-2); Albumin Level 2.6 gm/dl (3.4-5.0); BUN Creatinine Ratio 19.8 (10-20); Creatinine Clr Calc Pharmacy 35.5 ml/min; Est GFR (African American) 74.6 ml/min; Est GFR (Non-African American) 64.4 ml/min; Globulin 3.4 gm/dl (2.5-4.0); Potassium 3.5 mmol/L (3.5-5.1)
[2022-04-22] MEDS: MECLIZINE HCL 25 MG TAB PO PRN (09:56)
[2022-04-22] MEDS: DORZOLAMIDE/TIMOLOL 22.3/6.8MG/ML 10 ML BTL OPB SCH ×2 (11:23→21:21)
[2022-04-22] MEDS: SPIRONOLACTONE/HCTZ 25-25 PO SCH (11:23)
--- NOTE | 2022-04-22 15:46 | Hospitalist Progress Note ---
Date of Service April 22, 2022 Assessment & Plan (1) Vertigo: Plan: - Intractable dizziness, nausea, vomiting since last evening. Somewhat improved with IVF, antiemetics, meclizine in ED but some residual symptoms. patient lives alone and afraid to go home too soon in case symptoms recur. - IV w/ LRs at 80 cc/hr, meclizine prn for dizziness, 1st line Zofran, 2nd line Compazine for nausea/vomiting. - CVA was considered and head CT was obtained in the ED without any acute abnormalities noted. Unfortunately, patient has contrast allergy and cannot undergo head/neck CTA. - Her nausea and vomiting, as well as dizziness is much improved, and she is not having any other neurological deficits such as limb numbness/tingling/weakness, slurred speech, word finding difficulty, or facial droop. Therefore further imaging/cva work up was not pursued. - PT/OT consulted - pt did not ambulate well with either. Steven hallpike and jory performed by PT. Not substantial improvement after one treatment, could repeat tomorrow. - Given persistent symptoms and c/o R leg "not working" will order an MRI brain w/ contrast to be done on 04/23 to exclude any other causes of symptoms (2) Hepatocellular carcinoma: Plan: - s/p chemo in December at [facility]. - new liver foci seen on CT A/P today. ED provider spoke with her interventional radiology doctor at [facility] to discuss changes seen on liver ultrasound and CT. At this time, he feels these are expected changes given her previous treatments and does not require urgent evaluation or transfer. Recommend she keep her follow-up appointment with [facility] next week. 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 - Transaminitis improving but Tbili up from 1.6 on admit to 2.0 (4) Hypertension: Plan: - Continue spironolactone. - BP well controlled (5) Hypercholesterolemia: Plan: - Hold statin given worsening liver function. (6) Hypothyroidism: Plan: - Continue Synthroid. (7) Glaucoma: Plan: - Continue eyedrops. Plan Continue obs status. PT/OT to re-evaluate patient tomorrow and could repeat jory tomorrow. If needed, pt lives at the [facility] at and [facility] pending repeat therapy eval. MRI tomorrow as noted above. Plan to be d/w Dr. Bhardwaj. Admission and Anticipated Discharge Date Admission Date: April 21, 2022 Subjective Patient seen on daily rounds this morning and again this afternoon. She was hospitalized with dizziness/sensation of room spinning that seems to be exacerbated by position changes. She notes that symptoms have improved slightly today as compared to when she came in. She was seen after working with PT this a fternoon. PT noted she was fearful to walk and stated she felt that her right leg "wouldn't work." Review of Systems Review of Systems: All systems reviewed and are unremarkable except as noted in HPI and below. Denies fever, chills, fatigue, headache, nasal congestion, sore throat, cough, chest pain, shortness of breath, palpitations, orthopnea, PND, abdominal pain, n/v/d, constipation, dysuria, hematuria, frequency, back pain, joint pain or swelling, easy bruising or bleeding, skin lesions or rashes. Physical Exam Physical Exam: GENERAL: 89 yo Well-developed, well-nourished elderly WF. NAD. LUNGS: Clear to auscultation bilaterally. No W/R/R. CARDIOVASCULAR: Regular rate and rhythm. ABDOMEN: Soft, non-tender and non-distended. BS normoactive x 4 quad. EXTREMITIES: No edema. Non-tender. Peripheral pulses +2/4. NEUROLOGIC: A&O x3. PSYCHIATRIC: Cooperative. Appropriate mood and affect. SKIN: Warm, dry, intact. some ecchymosis noted on left upper arm. Results & Data Results & Data ([facility]) Vital Signs (Past 12 Hours) Vital Signs Temp Pulse Resp BP Pulse Ox O2 Del Method 04/22/22 15:08 36.6 C 63 18 120/65 97 Room Air 04/22/22 11:30 36.6 C 67 16 144/72 H 96 Room Air 04/22/22 08:45 36.6 C 78 16 151/65 H 96 Room Air Laboratory Results 04/21/22 09:20 04/22/22 08:34 PG Care Time/CCT Total # of Minutes Spent Total Time Spent with Patient: Total time spent is greater than 50% in coordination of care (as documented) at patient's floor/unit and/or counseling patient: Coding Level of Care Code 62487 Subseq Obs Care Lvl 2 Diagnoses Vertigo R42 Hepatocellular carcinoma C22.0 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
[2022-04-22] MEDS ORDERED: LORazepam 0.5 MG TAB PO ONE (20:50)
[2022-04-22] MEDS: MELATONIN 3 MG TAB PO PRN (21:21)
[2022-04-22] MEDS: LATANOPROST 0.005% OP SOLN 2.5 ML BTL OPB SCH (21:22)
[2022-04-23] MEDS: LEVOTHYROXINE SODIUM 88 MCG TABLET PO SCH (05:37)
[2022-04-23] MEDS: DORZOLAMIDE/TIMOLOL 22.3/6.8MG/ML 10 ML BTL OPB SCH (08:31)
[2022-04-23] MEDS: SPIRONOLACTONE/HCTZ 25-25 PO SCH (08:32)
[2022-04-23] MEDS ORDERED: LORazepam 0.5 MG TAB PO ONE (09:15)
[2022-04-23] MEDS ORDERED: GADOBUTROL 65ML VIAL IV ONE (09:59)
--- NOTE | 2022-04-23 10:51 | Magnetic Resonance Report ---
MRI OF THE BRAIN WITHOUT AND WITH IV CONTRAST CLINICAL HISTORY: dizziness/vertigo, known hepatocellular carcinoma. COMPARISON STUDY: Head CT April 21, 2022. TECHNIQUE: Utilizing a 1.5 Ivis magnet and dedicated coil, multiplanar, multiecho imaging of the br ain was performed pre and postcontrast administration. IV administration of 6 mL of Gadavist contras t was uneventful. Thin cut T1 post contrast imaging was performed. FINDINGS: There are no foci of restricted diffusion to suggest acute infarct. No acute intracranial h emorrhage, midline shift or mass effect is present. Ventricular system is normal. Basal cisterns are patent. There are no extra-axial collections. Flow-voids for the major intracranial vessels are prese nt. There is no intracranial mass or pathologic enhancement. There is marked cerebral atrophy. White matter T2 hyperintense foci suggest small vessel disease. Calvarial signal is normal. Small mucous re tention cyst within the left posterior ethmoid air cells is present. IMPRESSION: 1. No acute intracranial findings. 2. No evidence of metastatic disease. 3. Atrophy and small vessel disease, as above. ACT 112: Negative or not required by law. Electronically signed by: Florin Rai M.D. 04/23/2022 10:49 AM
[2022-04-23 12:34] LABS: Appearance Urine Clear (Clear); Bilirubin Urine Negative (Negative); Blood Urine Negative (Negative); Color Urine Yellow; Glucose Urine UA Negative (Negative); Ketones Urine Negative (Negative); Leukocyte Esterase Urine Negative (Negative); Nitrite Urine Negative (Negative); Protein Urine Negative (Negative); Specific Gravity Urine 1.016 (1.000-1.030); Urobilinogen Urine Positive (Negative)
[2022-04-23] MEDS: MECLIZINE HCL 25 MG TAB PO PRN (12:57)
--- NOTE | 2022-04-23 14:15 | Discharge Summary ---
Date of Service April 23, 2022 Admission HPI Per Admitting Provider Lukas Ojeda is a 89-year-old female past medical history significant for DÍAZ cirrhosis, HCC, hypertension, CKD, glaucoma, and hypothyroidism who presented to the ED this morning with dizziness. He got up in the middle the night to use the bathroom and noticed that she was little dizzy with vertigo symptoms and difficulty walking so she went back to bed. She has been nauseous and vomiting since she woke up this morning, but no fever or chills, body aches, chest pain, palpitations, shortness of breath, abdominal pain, diarrhea, constipation, or blood in stools. She not had any falls. In the ED, her labs are fairly unremarkable with a slightly low potassium of 3.4, AG 12. LFTs are elevated from November, however consistent with labs from 2 days ago, T bili 1.6, AST 150, ALT 199, alk phos 419. Albumin low at 3. Her lipase is 100. She has no white count or new anemia. Head CT unremarkable, liver U/a shows a cirrhotic liver with a 1.8 cm mass similar to previous MRI. She is s/p cholecystectomy. CBD [address] A/P shows moderate intra and extrahepatic bile duct dilation slightly progressed. There are scattered clusters of hypodense foci seen to the liver which are new from prior study favoring postembolization and/treatment changes. 2 similar-appearing evidence foci within the liver the largest hepatic dome measuring 2.6 cm are indeterminate but new from prior study also favoring postembolization change. Hepatic abscess is also similar appearance, however less likely. There is right-sided nephrolithiasis without hydronephrosis. Diverticulosis without acute diverticulitis. Appendix appears normal. There is subacute mild superior endplate compression fracture at T10 and T11. Principal Diagnosis BPPV Discharge Exam GENERAL: 89 yo Well-developed, well-nourished elderly WF. NAD. LUNGS: Clear to auscultation bilaterally. No W/R/R. CARDIOVASCULAR: Regular rate and rhythm. ABDOMEN: Soft, non-tender and non-distended. BS normoactive x 4 quad. EXTREMITIES: No edema. Non-tender. Peripheral pulses +2/4. NEUROLOGIC: A&O x3. PSYCHIATRIC: Cooperative. Appropriate mood and affect. SKIN: Warm, dry, intact. some ecchymosis noted on left upper arm. Discharge Data Allergies Allergy/AdvReac Type Severity Reaction Status Date / Time Iodinated Contrast Media Allergy Intermediate SWELLING Verified 04/21/22 12:35 Consultations 04/21/22 16:38 ED Decision to Admit Stat Ordered Studies Head CT 04/21/22 09:34 CT head/brain wo con CLINICAL HISTORY: 89 years-old Female with vertigo. Acute vertigo TECHNIQUE: Multiple axial CT images of the head were obtained without contrast. A dose lowering technique was utilized adhering to the principles of ALARA. CT DOSE: 614.27 mGy.cm COMPARISON: None. FINDINGS: No acute intracranial hemorrhage, midline shift, intracranial mass, hydrocephalus, territorial ischemia or abnormal extra-axial collection. Involutional changes with white matter hypodensities suggestive of chronic microvascular ischemic disease.. Senescent calcifications of the basal ganglia. Cerebral vascular calcifications. The calvarium is intact. Prior bilateral lens repair. Partially calcified subcutaneous lesion of the occipital scalp measuring 1.6 cm is likely benign. The paranasal sinuses, mastoid air cells, and middle ear cavities are clear. IMPRESSION: No acute intracranial abnormality ACT 112: Negative or not required by law. The above report was generated using voice recognition software. It may contain grammatical, syntax or spelling errors. Electronically signed by: Gume Juarez M.D. 04/21/2022 10:25 AM Liver Ultrasound 04/21/22 11:33 ABDOMINAL ULTRASOUND, RIGHT UPPER QUADRANT HISTORY: h/o hepatocellular carcinoma, worsening LFTs. COMPARISON: Abdominal MRI 11/16/2021. FINDINGS: Pancreas: The pancreatic tail is obscured by overlying bowel gas. The remaining portions of the pancreas are within normal limits. Liver: Nodular contour to the liver consistent with cirrhosis. The liver is diffusely heterogeneous resulting in difficult evaluation for a hepatic mass. There is 1.8 cm mass within the right hepatic lobe which is similar to the prior abdominal MRI. The additional hepatic masses are not well visualized by this mod ality. The main and right hepatic and portal veins are patent and demonstrate normal direction of flow. The left popliteal vein the left hepatic vein are not well visualized due to overlying bowel. There is reversal of flow at the portosplenic confluence. Gallbladder: The gallbladder is surgically absent. CBD: 8 mm Right kidney: No hydronephrosis. IMPRESSION: 1. Cirrhotic liver containing a 1.8 cm mass. This is similar to the prior MRI. Additional hepatic masses are not well visualized by this modality. 2. Cholecystectomy. 3. Reversal flow at the portosplenic confluence. ACT 112: Negative or not required by law. Electronically signed by: Silas Mendez M.D. 04/21/2022 12:42 PM Abdomen/Pelvis CT 04/21/22 12:[address] WITHOUT CONTRAST CT DOSE: 724.90 mGycm HISTORY: transaminitis, h/o HCC, elevated lipase w/ vomiting TECHNIQUE: Multiaxial CT images of the abdomen and pelvis were performed without contrast. A dose lowering technique was utilized adhering to the principles of ALARA. COMPARISON STUDY: Abdominal MRI 11/16/2021 FINDINGS: Mild dependent changes seen at the lung bases. No pneumoperitoneum. No pneumatosis. 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 There are subacute mild superior endplate compression fractures at T10 and T11. The T11 compression fracture demonstrates 3 mm of retropulsion resulting in mild central canal narrowing at this level. Nodular contour to the liver consistent with cirrhosis. Scattered clusters of hyperdense foci seen throughout the liver which are new from the prior study. This favors post embolization/treatment changes. Moderate intrahepatic and extrahepatic bile duct dilatation has slightly progressed. There are 2 similar-appearing adjacent hypodense foci within the junction of the right/left hepatic lobe measuring 3.6 and 3.3 cm in size. These are best seen on images 73 through 90. Postoperative changes consistent with prior partial right hepatectomy. Prior cholecystectomy. There is a punctate stone within the right kidney. No ureteral stones. No hydronephrosis. Mild perinephric and mesenteric edema. The bladder is unremarkable. Prior hysterectomy. Suboptimal evaluation for bowel pathology due to the lack of intravenous and oral contrast. However, there is no definite bowel wall thickening or obstruction. Colonic diverticulosis. No evidence for acute diverticulitis. Questionable thickening of the descending colon is likely due to underdistention. Normal appendix. No retroperitoneal lymphadenopathy. Left para-aortic varicosities are noted. Calcified plaque within the normal caliber abdominal aorta. The spleen is normal in size. The unenhanced pancreas and adrenal glands are unremarkable. IMPRESSION: 1. Multiple scattered clusters of hyperdense foci seen throughout the liver which are new from the prior study. This favors post embolization/treatment changes. 2. There are 2 similar-appearing hypodense foci within the liver with the largest at the hepatic dome measuring 3.6 cm. These are indeterminate but new from the prior study. This also favors post embolization changes. A hepatic abscess could also have a similar appearance in the appropriate clinical setting but is considered less likely. 3. Cirrhotic liver. 4. Right-sided nephrolithiasis. No hydronephrosis. 5. Colonic diverticulosis. No evidence for acute diverticular this. 6. Normal appendix. 7. Subacute mild superior endplate compression fractures at T10 and T11. 8. Moderate intra and extrahepatic bile duct dilatation which has slightly progressed in the interval. ACT 112: Negative or not required by law. Electronically signed by: Silas Mendez M.D. 04/21/2022 2:55 PM Brain MRI 04/23/22 08:00 MRI OF THE BRAIN WITHOUT AND WITH IV CONTRAST CLINICAL HISTORY: dizziness/vertigo, known hepatocellular carcinoma. COMPARISON STUDY: Head CT April 21, 2022. TECHNIQUE: Utilizing a 1.5 Ivis magnet and dedicated coil, multiplanar, multiecho imaging of the brain was performed pre and postcontrast administration. IV administration of 6 mL of Gadavist contrast was uneventful. Thin cut T1 post contrast imaging was performed. FINDINGS: There are no foci of restricted diffusion to suggest acute infarct. No acute intracranial hemorrhage, midline shift or mass effect is present. V entricular system is normal. Basal cisterns are patent. There are no extra-axial collections. Flow-voids for the major intracranial vessels are present. There is no intracranial mass or pathologic enhancement. There is marked cerebral atrophy. White matter T2 hyperintense foci suggest small vessel disease. Calvarial signal is normal. Small mucous retention cyst within the left posterior ethmoid air cells is present. IMPRESSION: 1. No acute intracranial findings. 2. No evidence of metastatic disease. 3. Atrophy and small vessel disease, as above. ACT 112: Negative or not required by law. Electronically signed by: Florin Rai M.D. 04/23/2022 10:49 AM Hospital Course (1) Vertigo: - Intractable dizziness, nausea, vomiting since last evening. Somewhat improved with IVF, antiemetics, meclizine in ED but some residual symptoms. patient lives alone and afraid to go home too soon in case symptoms recur. - IV w/ LRs at 80 cc/hr x 1L, meclizine prn for dizziness, 1st line Zofran, 2nd line Compazine for nausea/vomiting. - CVA was considered and head CT was obtained in the ED without any acute abnormalities noted. Unfortunately, patient has contrast allergy and cannot undergo head/neck CTA. - Her nausea and vomiting, as well as dizziness is much improved, and she is not having any other neurological deficits such as limb numbness/tingling/weakness, slurred speech, word finding difficulty, or facial droop. Therefore further imaging/cva work up was not pursued. - PT/OT consulted - pt did not ambulate well with either. Steven hallpike and jory performed by PT. Not substantial improvement after one treatment, is to be repeated today - Given persistent symptoms and c/o R leg "not working" MRI brain completed this AM w/ contrast, no acute findings to account for dizziness - Therapy recommending short stay in rehab to ensure stability prior to returning home where she lives independently in an apartment at the [facility] at - CM consulted, has arranged for patient to transition to the [facility] for [facility] - Rx provided for Meclizine PRN (2) Hepatocellular carcinoma: - s/p chemo in December at [facility]. - new liver foci seen on CT A/P today. ED provider spoke with her interventional radiology doctor at [facility] to discuss changes seen on liver ultrasound and CT. At this time, he feels these are expected changes given her previous treatments and does not require urgent evaluation or transfer. Recommend she keep her follow-up appointment with [facility] next week. 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 - Transaminitis improving but Tbili up from 1.6 on admit to 2.0 (4) Hypertension: - Continue spironolactone. - BP well controlled (5) Hypercholesterolemia: - Hold statin given worsening liver function. - Continue drug holiday for minimum of 3 mo. - Can discuss resuming w/ PCP at follow up (6) Hypothyroidism: - Continue Synthroid. (7) Glaucoma: - Continue eyedrops. Plan Patient is medically and hemodynamically stable for discharge to the [facility] for [facility]. Rx for Meclizine sent to her pharmacy. Plan of care has been d/w Dr. Kj Bhardwaj who has also seen and evaluated this patient prior to discharge and agrees with aforementioned. Total Time Total Time Spent Total Time Spent (In Minutes): <30 minutes Discharge Plan Discharge Items Patient Disposition: Transfer Senior Living Fac Reason For Visit: VERTIGO Discharge Diagnosis: benign positional vertigo Activity: Resume your previous activity Non-emergency contact: Primary Care Provider Call non-emergency contact if: you have any medication questions and your symptoms worsen Follow-up/Referrals: Celsa Patton MD [Primary Care Provider] - Diet: Regular Addtl Attending Provider Instructions: You were hospitalized due to dizziness which was made worse by position changes and was associated with sensation of room spinning. You were seen by our physical and occupational therapists during your stay and due to concern that perhaps your symptoms were being induced by what is termed "positional vertigo" which occurs when the crystals in the inner ear become out of alignment sending mixed signals to your brain on your current body positions and can create the sensation of dizziness. Therefore, you underwent a maneuver to help reposition those crystals by a series of movements. You were also given a medication called Meclizine to help with the dizziness/spinning sensation. Also, due to the persistence of your symptoms, you underwent a brain MRI to ensure there was no other cause that could be contributing to your dizziness. Y our MRI did NOT demonstrate any evidence of cancer in the brain OR evidence of a stroke. You were seen by physical therapy again on 04/23 and it was felt that you would benefit from additional therapy to ensure that you are able to safely ambulate independently prior to returning to your home in which you live without assistance. It has subsequently been arranged for [facility] to [facility] on a temporary basis until you are safely able to return home to your apartment. We will give you a prescription for Meclizine that you can continue to use as needed upon discharge for your dizziness. You will continue to undergo physical and occupational therapy treatments at the [facility]. It is advised that you follow up with your family doctor upon discharge from the hospital, ideally we recommend you follow up in about 1 week. Keep your scheduled follow up with [facility] next week for your liver cancer follow up. If you have any questions/concerns following your discharge that cannot be answered by your primary care physician, please call the nonemergency number listed on your discharge paperwork. Pending Studies at Discharge: No Stand-Alone Forms: My [facility] Skilled Items Patient informed of condition?: Yes DNR: Yes Discharge Level of Care: Skilled Communicable Disease: No Discharge Prognosis: Stable Lines: None Urinary Catheter: No Medications and DC Order Prescriptions: New meclizine 25 mg Tablet 25 mg PO TID PRN (Reason: dizziness) Qty: 30 0RF Continued spironolacton-hydrochlorothiaz 25-25 mg tablet 1 tab PO DAILY Qty: 90 3RF latanoprost 0.005 % drops 1 drops OPB PM dorzolamide-timolol 22.3-6.8 mg/mL drops 1 drops OPB BID atorvastatin 20 mg tablet 20 mg PO QPM Qty: 90 3RF levothyroxine 88 mcg tablet 88 mcg PO DAILY Rx Instructions: 88 mcg daily; Discharge Orders: Discharge Order (Routine); Ordered 04/23/22 Ordered By: Kelley Cisneros/Other Patient Handouts: Vertigo Staying Safe Admission Data Admit Date/Time: 04/21/22 17:16 Attending Provider: Kj Bhardwaj Admit Provider: Marquis Rausch Primary Care Provider: Celsa Patton Other Providers: Marquis Rausch Other Interventions: Discharge Summary Assessment (RN) Last Done: 04/23/22 15:26 Supervising Physician Co-Signing Physician Notes I supervised Kelley Amaya PA-C on the care of this patient. I interviewed and examined the patient independently of her. The plan is as written in her note except for any following changes/exceptions: None Doing very well today. Vertigo is much improved. Ready for discharge. 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
== END 2022-04-23 16:20 ==
LOC: 3E 09:05 → ED 09:05 → SUATTDRO 17:16 → 3E 20:40
DX: E78.00 Pure hypercholesterolemia, unspecified; K74.60 Unspecified cirrhosis of liver; R42 Dizziness and giddiness; H40.9 Unspecified glaucoma; Z79.899 Other long term (current) drug therapy; E03.9 Hypothyroidism, unspecified; I10 Essential (primary) hypertension; C22.0 Liver cell carcinoma; Z91.041 Radiographic dye allergy status; K75.81 Nonalcoholic steatohepatitis (NASH); Z87.891 Personal history of nicotine dependence